=== PATIENT | female | born 1980 | race Two or more races ===

== ENCOUNTER 2023-12-14 13:41 | Outpatient (REF) | payer OTHER, SELFPAY ==
[2023-12-14 13:57] LABS: MANUAL DIFF FLAG NO
[2023-12-14 14:17] LABS: Basophils Absolute Auto 0.1 X10*3/uL (0.0-0.2); Basophils Percent Auto 0.9 % (0-2); Eosinophils Absolute Auto 0.1 X10*3/uL (0.0-0.4); Eosinophils Percent Auto 2.5 % (0-4); Hematocrit 44.6 % (37.0-47.0); Hemoglobin 14.2 g/dl (12.0-16.0); Imm Gran Abs Auto 0.02 X10*3/uL (0.00-0.03); Imm Gran Pct Auto 0.4 % (0.0-0.4); Lymphocytes Absolute Auto 1.9 X10*3/uL (1.2-4.9); Lymphocytes Percent Auto 34.4 % (20-40); Mean Corpuscular HGB Conc 31.8 g/dl (31.0-35.0); Mean Corpuscular Hemoglobin 27.2 pg (27.0-33.0); Mean Corpuscular Volume 85.3 fL (80.0-98.0); Mean Platelet Volume 11.1 fL (9.4-12.3); Monocytes Absolute Auto 0.4 X10*3/uL (0.1-1.2); Monocytes Percent Auto 6.9 % (2-11); Neutrophils Percent Auto 54.9 % (45-73); Platelet Count 253 X10*3/uL (160-400); Red Blood Count 5.23 X10*6/uL (4.20-5.50); Red Cell Distribution Width 13.2 % (11.0-16.0); White Blood Count 5.5 X10*3/uL (4.8-10.8)
[2023-12-14 14:25] LABS: Appearance Urine Cloudy; Color Urine Yellow; Glucose Urine UA Negative (Negative); Leukocyte Esterase Urine Large (3+) (Negative); Nitrite Urine Negative (Negative); UMIC TRIGGER UACC YES; Urine Blood Negative (Negative); Urine Ketones Negative (Negative); Urine Protein Trace mg/dL (Neg-Trace)
[2023-12-14 14:45] LABS: Bacteria Urine 4+ (None Seen); Hyaline Casts Urine 0-2 /LPF (0-2); RBC Urine 0-2 /HPF (0-2); UACC Culture Trigger YES; WBC Urine 21-50 /HPF (0-5)
[2023-12-14 14:53] LABS: Alanine Aminotransferase 16 U/L (0-31); Albumin Level 4.1 g/dL (3.5-5.0); Alkaline Phosphatase 67 U/L (39-117); Anion Gap 11 (12-20); Aspartate Amino Transferase 16 U/L (5-31); Bilirubin Total 0.4 mg/dL (0.0-1.0); Blood Urea Nitrogen 10 mg/dL (9-16); Calcium 8.8 mg/dL (8.4-10.2); Carbon Dioxide 28 mmol/L (22-29); Chloride 106 mmol/L (96-108); Cholesterol 155 mg/dL (<200); Estimated Glomerular Filt Rate > 60; Glucose Fasting 94 mg/dL (60-99); HDL Cholesterol 48 mg/dL (>40); LDL Cholesterol Calculated 96 mg/dL (<100); Sodium 141 mmol/L (135-145); Total Protein 7.5 g/dL (6.5-8.0); Triglycerides 57 mg/dL (<150)
[2023-12-14 15:08] LABS: TSH reflex Free T4 1.16 uIU/mL (0.32-4.0)
== END 2023-12-14 13:42 | disposition home or self-care (01) ==
LOC: HO.LAB 13:41
PROVIDERS: PCP Internal Medicine; Visit Provider Internal Medicine
DX: E78.00 Pure hypercholesterolemia, unspecified (principal); E55.9 Vitamin D deficiency, unspecified; I10 Essential (primary) hypertension
CPT/HCPCS: 36415; 80053; 80061; 81001; 82306; 84443; 85025; 87086

== ENCOUNTER 2023-12-18 15:31 | Outpatient (AMB) | payer OTHER, SELFPAY ==
--- NOTE | 2023-12-18 15:36 | MHC.PC.OV ---
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 Required: No Electronics Processor: Not Required per policy Accompanied by: Self / Same As Patient Allergies No Known Drug Allergies Allergy (Unknown, Verified 08/05/24 12:55) Unknown Medication List - Last Reconciled 12/18/23 by Michoacano Lynch MD levocetirizine 5 mg PO DAILY Tobacco use date assessed: 12/18/23 Dental Screening Dental Screen Date: 12/18/23 Did you have a dental visit in the last 12 months?: Yes Did you have a dental problem in the last 6 months where you did not have access to dental care?: No Was dental information given to patient?: Patient has dentist HPI Annual Exam HPI Details Patient comes in today for her annual physical examination States that she continues to experience increased anxiety and depression (started mostly after her father about a year and a half ago now) - still does not wish to take any Rx but would now like to seek counseling/therapy for her mood disorder She also has several skin tags on her that she wants to have removed if possible States that she feels okay otherwise She denies any headaches or dizziness Denies any chest pains, no increased SOB No nausea/vomiting, no abdominal pain No change in bowel habits noted She denies any acute urinary symptoms She had her pap smear and gynecology exam done at [facility] last month (October 2023), and had her IUD replaced then She had her annual mammogram done a few days ago on 12/14/2023 and is scheduled for repeat imaging this Sunday supposedly to look further into some unexpected findings on her initial scans [facility] Medical History (Updated 09/08/24 @ 18:21 by Michoacano Lynch MD) Anxiety Depression Vitamin D deficiency Obesity (BMI 30-39.9) Overweight (BMI 25.0-29.9) Multiple environmental allergies Surgical History Status post left oophorectomy (~12/2017) Family History Father Colon cancer Mother No problems noted. Social History Housing: House Alcohol intake: current Alcohol intake frequency: holidays/special occasions only Patient Tobacco Use Status: Never used Tobacco e-Cigarette/Vaping Use: Never Used Second Hand Smoke Exposure: Yes service: No Current occupational status: employed Cognitive needs: No Hearing needs: No Vision needs: No Questionnaire PHQ-9 Over the last 2 weeks, how often have you been bothered by any of the following problems? 1. Little interest or pleasure in doing things: nearly every day 2. Feeling down, depressed, or hopeless: nearly every day 3. Trouble falling or staying asleep, or sleeping too much: nearly every day 4. Feeling tired or having little energy: nearly every day 5. Poor appetite or overeating: nearly every day 6. Feeling bad about yourself - or that you are a failure or have let yourself or your family down: nearly every day 7. Trouble concentrating on things, such as reading the newspaper or watching television: nearly every day 8. Moving or speaking so slowly that other people could have noticed. Or the opposite - being so fidgety or restless that you have been moving around a lot more than usual: nearly every day 9. Thoughts that you would be better off or of hurting yourself in some way: nearly every day Total score: 27 Depression Screening Interpretation: Positive (since father from cancer in 05/2022) Depression Screening Follow-up: Community Mental Health Worker F/U, Follow-up Visit Requested and Declines treatment Depression Screening Done: Yes 70342 - PHQ-9 Billing: Yes Source: Developed by Drs. Bear Armenta, Pema Power, Napoleon Mckee and colleagues, with an educational calderon from [employer]. Thrive Questionnaire Date Thrive assessed: 12/18/23 I am a: Patient What is your living situation today?: I have a steady place to live Within the past 12 months, did the food you bought not last and you didn't have the money to get more?: Never true Within the past 12 months, did you worry whether your food would run out before you got money to buy more?: Never true Do you have trouble paying for medicines?: No Do you have trouble getting transportation to medical appointments?: No Do you have trouble paying your heating and electricity bill?: No Do you have trouble taking care of your child, family member or friend?: No Do you have trouble with day-to-day activities such as bathing, preparing meals, shopping, managing finances, etc.?: No Are you currently unemployed and looking for a job?: No Are you interested in more education?: No Please select the resources that you would like help with: None Currently or been in a relationship where the following occur: no concerns reported THRIVE Score: 0 AUDIT C Alcohol Use Questionnaire (AUDIT-C) 1. How often do you have a drink containing alcohol?: Monthly or less 3. How often do you have six or more drinks on one occasion?: Less than monthly Total Score: 2 Score Reviewed/Action Taken: Yes SILVIANO-7 AMB Questionnaire SILVIANO-7 Date SILVIANO - 7 assessed: 12/18/23 Feeling nervous, anxious, or on edge: 0 = Not at all Not being able to stop or control worryin = Not at all Worrying too much about different things: 0 = Not at all Trouble relaxin = Not at all Being so restless that it is hard to sit still: 0 = Not at all Becoming easily annoyed or irritable: 0 = Not at all Feeling afraid as if something awful might happen: 0 = Not at all Total SILVIANO-7 score (0-4 normal; 5-9 mild; 10-14 moderate; 15-21 severe): 0 Source: Developed by Drs. Bear Armenta, Pema Power, Napoleon Mckee and colleagues, with an educational calderon from [employer]. Review of Systems Const Denies chills, Denies fatigue, Denies fever(s), Denies headache(s) and Denies malaise Eyes Denies blurry vision, Denies change in vision, Denies irritation and Denies itchy eyes ENT Denies dysphagia, Denies dizziness, Denies otalgia, Denies headache(s), Reports nasal congestion (at times), Reports nasal discharge (on and off), Denies neck pain, Denies odynophagia, Denies sinus pain and Denies sore throat Card Denies chest pain, Denies rapid heart rate, Denies irregular heart rhythm, Denies palpitations and Denies dyspnea Resp Denies chest congestion, Denies cough, Denies dyspnea and Denies wheezing GI Denies abdominal pain, Denies bloating, Denies constipation, Denies dysphagia, Denies heartburn, Denies diarrhea, Denies nausea, Denies odynophagia and Denies vomiting Denies hematuria, Denies urinary frequency, Denies dysuria, Denies urinary incontinence and Denies urinary urgency Musc Denies back pain, Denies arthralgias, Denies joint swelling, Denies muscle weakness and Denies neck pain Skin/Breast Details: (+) scattered multiple skin tags, especially around her neck area Denies breast pain, Denies breast mass, Denies change in pigmentation, Denies rash and Denies unusual bruising Neuro Denies dizziness, Denies headache(s) and Denies paresthesias Psych Reports anxiety and Reports depression Endo Denies fatigue and Denies palpitations Joel/Lymph Denies easy bruising Aller/Immun Denies itchy eyes, Reports seasonal rhinorrhea and Denies wheezing Physical exam (Primary Care) Vital Signs: Last Vital Signs Pulse 75 12/18/23 15:37 BP 130/72 12/18/23 15:37 Pulse Ox 100 12/18/23 15:37 Oxygen Delivery Method Room Air 12/18/23 15:37 BMI result Body Mass Index 32.1 Tobacco/Smoking Status: Tobacco use Status Tobacco use date assessed 12/18/23 12/18/23 15:38 Patient Tobacco Use Status Never used Tobacco 12/18/23 15:36 e-Cigarette/Vaping Use Never Used 12/18/23 15:36 PHQ-9: PHQ-9 Score PHQ-9: Total score 12/20/23 22:21 Depression Screening Interpretation: Positive (since father from cancer in 05/2022) Depression Screening Follow-up: Community Mental Health Worker F/U, Follow-up Visit Requested and Declines treatment Thrive Assessment: Date of Thrive Assessment Date Thrive assessed 12/18/23 12/18/23 15:38 Currently or been in a relationship where the following occur: no concerns reported Const General: no acute distress, alert and awake Orientation/consciousness: patient oriented x3 HENMT Head: Yes normocephalic and Yes atraumatic Ears: external ears normal, TM's normal bilaterally and EAC's normal General nose exam: No nasal discharge present Face and sinus: Yes normal facial exam and Yes sinuses nontender Teeth and gingiva: dentition normal Throat: Yes posterior oropharynx normal and Yes tonsils normal (no TP congestion) Eyes Eyelids: Yes eyelids normal Conjunctivae: conjunctivae normal Pupils: Equal, round and reactive pupils present EOM: EOMs intact bilaterally Neck Neck: Yes no lymphadenopathy and Yes supple Thyroid: Thyroid normal Resp Auscultation: clear to auscultation bilaterally, no rales and no wheezes Cardio Rate: regular rate Rhythm: regular rhythm Heart sounds: no murmurs GI Palpation (GI): Soft to palpation, nontender and No hepatosplenomegaly present Auscultation: normal bowel sounds General: Yes no CVA tenderness Back/Spine/Pelvis Back: no CVA tenderness Thoracic/Lumbar Spine: thoracic and lumbar spine normal to inspection Skin Other: (+) multiple small, scattered raised skin tags, especially around her neck area Rashes: no rashes Neuro General: patient oriented x3, moves all extremities, no focal motor deficits and CN's II-XI intact bilaterally Cranial nerves: Yes Equal, round and reactive pupils present Cognition (Neuro): normal cognition Gait exam (Neuro): Normal gait present Extrem General: Yes no clubbing, cyanosis or edema Results Reviewed Results Reviewed: Laboratory Tests 12/14/23 12/14/23 12/14/23 13:56 13:56 14:00 WBC 5.5 Hgb 14.2 Hct 44.6 Plt Count 253 Sodium 141 Potassium 4.0 Creatinine 0.66 Estimated GFR > 60 Fasting Glucose 94 AST 16 ALT 16 Triglycerides 57 Cholesterol 155 LDL Cholesterol, Calc 96 HDL Cholesterol 48 25-OH Vitamin D Total 11.0 L TSH 1.16 Ur Specific [place] 1.020 Urine Protein Trace Urine Glucose (UA) Negative Urine Blood Negative Urine Nitrite Negative Ur Leukocyte Esterase 12/14/23 14:00 WBC Hgb Hct Plt Count Sodium Potassium Creatinine Estimated GFR Fasting Glucose AST ALT Triglycerides Cholesterol LDL Cholesterol, Calc HDL Cholesterol 25-OH Vitamin D Total TSH Ur Specific [place] Urine Protein Urine Glucose (UA) Urine Blood Urine Nitrite Ur Leukocyte Esterase Large (3+) H Coding Level of Care Code Est Pt Prev Care 40-64y(69102) Diagnoses Annual physical exam Z00.00 Multiple environmental allergies Z91.09 Vitamin D deficiency E55.9 Multiple acquired skin tags L91.8 Anxiety F41.9 Depression, unspecified depression type F32.A Depression Type: unspecified Obesity (BMI 30-39.9) E66.9
[2023-12-18 15:37] VITALS: BP 130/72; PULSE 75; O2SAT 100; BMI 32.1
== END 2023-12-18 16:53 | disposition home or self-care (01) ==
PROVIDERS: PCP Internal Medicine; Visit Provider Internal Medicine
DX: Z00.00 Encounter for general adult medical examination without abnormal findings (principal); Z91.09 Other allergy status, other than to drugs and biological substances; F32.A Depression, unspecified; E55.9 Vitamin D deficiency, unspecified; L91.8 Other hypertrophic disorders of the skin; F41.9 Anxiety disorder, unspecified; E66.9 Obesity, unspecified
CPT/HCPCS: 99499

== ENCOUNTER 2024-08-05 12:01 | Outpatient (AMB) | payer OTHER, SELFPAY ==
--- NOTE | 2024-08-05 12:48 | AM.OFFWIN_ITS ---
Intake Vital Signs 08/05/24 12:49 Height 5 ft 3 in Weight 177 lb BMI 31.4 BP 120/80 Blood Pressure Location Lt brachial Position Sitting Pulse 60 Pulse Source Pulse Oximeter Pulse Oximetry (%) 98 Oxygen Delivery Method Room Air Intake Visit Reasons: EP-rt shoulder pain Intake Note: Patient here for injury that happened about 2 months ago, she states her right shoulder is still present. Patient Tobacco Use Status: Never used Tobacco Allergies No Known Drug Allergies Allergy (Unknown, Verified 08/05/24 12:55) Unknown Do you need a note to return to daycare/school/sports/work: No HPI HPI Comments History of Present Illness Details 43 y/o female patient who presents to [facility] walk in clinic with c/o right shoulder pain x 2 weeks. Pt reports had a fall 2 months ago and landed on her shoulder. She was seen and evaluated at a local in [place] and Xrays were negative for fracture. She continues to have pain with any ROM. Denies numbness or tingling. [facility] Medical History Multiple environmental allergies Overweight (BMI 25.0-29.9) Surgical History Status post left oophorectomy (~12/2017) Family History Father Colon cancer Mother No problems noted. Social History Housing: House Alcohol intake: current Alcohol intake frequency: holidays/special occasions only Patient Tobacco Use Status: Never used Tobacco e-Cigarette/Vaping Use: Never Used Second Hand Smoke Exposure: Yes service: No Current occupational status: employed Cognitive needs: No Hearing needs: No Vision needs: No Physical Exam Vital Signs: Last Vital Signs Pulse 60 08/05/24 12:49 BP 120/80 08/05/24 12:49 Pulse Ox 98 08/05/24 12:49 Oxygen Delivery Method Room Air 08/05/24 12:49 BMI result Body Mass Index 31.4 Const General: cooperative and no acute distress; No comfortable Nutritional Appearance: overweight Orientation/consciousness: patient oriented x3 Neuro General: patient oriented x3, gait normal and moves all extremities Extrem Right upper extremity: shoulder/upper arm (Limited ROM due to pain) Details: normal to inspection and abnormal ROM; no tenderness, no swelling, no lacerations, no ecchymosis and no crepitus Left upper extremity: normal to inspection and full ROM Psych Speech and movement: Normal speech and movement present Assessment & Plan Assessment & Plan (1) Right shoulder strain: Code(s): S46.911A - Strain of unspecified muscle, fascia and tendon at shoulder and upper arm level, right arm, initial encounter Qualifiers: Encounter type: initial encounter Qualified Code(s): S46.911A - Strain of unspecified muscle, fascia and tendon at shoulder and upper arm level, right arm, initial encounter Plan: Ordered referrals to PT and Pain management. NSAIDs for pain relief IceHot Orders: Orders PT Evaluation and Treatment Today S46.911A - Strain of unspecified muscle, fascia and tendon at shoulder and upper arm level, right arm, initial encounter Referrals Pain Management Referral S46.911A - Strain of unspecified muscle, fascia and tendon at shoulder and upper arm level, right arm, initial encounter Medications: New cyclobenzaprine 10 mg PO BEDTIME 14 tabs 0RF S46.911A - Strain of unspecified muscle, fascia and tendon at shoulder and upper arm level, right arm, initial encounter acetaminophen 1,000 mg (2 x 500 mg) PO Q6H PRN 60 caps 0RF pain S46.911A - Strain of unspecified muscle, fascia and tendon at shoulder and upper arm level, right arm, initial encounter ibuprofen 800 mg PO Q8H 30 tabs 0RF S46.911A - Strain of unspecified muscle, fascia and tendon at shoulder and upper arm level, right arm, initial encounter Coding Level of Care Code Est Pt Level 3 (13850) Diagnoses Strain of right shoulder, initial encounter S46.911A Encounter type: initial encounter Time Spent (min) 15
[2024-08-05 12:49] VITALS: BP 120/80; PULSE 60; O2SAT 98; BMI 31.4
== END 2024-08-05 13:51 | disposition home or self-care (01) ==
PROVIDERS: PCP Internal Medicine; Visit Provider Nurse Practitioner Family
DX: S46.911A Strain of unspecified muscle, fascia and tendon at shoulder and upper arm level, right arm, initial encounter (principal)

== ENCOUNTER → 2024-08-05 12:01 | Outpatient (BNVA) | payer OTHER, SELFPAY | PROVIDERS: PCP Internal Medicine; Visit Provider Nurse Practitioner Family | DX: S46.911A Strain of unspecified muscle, fascia and tendon at shoulder and upper arm level, right arm, initial encounter (principal) | CPT/HCPCS: 99212 ==

== ENCOUNTER 2024-09-25 13:53 | Outpatient (AMB) | payer OTHER, SELFPAY ==
--- NOTE | 2024-09-25 13:55 | A.OFFVIS_ITS ---
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 Patient reports right shoulder strain injury due to mechanical fall on 06/08/24 and landed on her shoulder. Patient reports she was on vacation in [place] with her family and while at gas station, she was trying to cross over gas line and started to fall and grabbed top of her car's door and pulled her right arm. Patient is right hand dominant. She was seen and evaluated at a local Urgent Clinic in [place] and was told x-rays were negative for fracture. Patient was also seen at our [facility] on 08/05/24 with continued pain with ROM and was referred to PT and our office. She has been managing her symptoms with Tylenol, Ibuprofen and cyclobenzaprine and completed 6 formal PT sessions thus far with minimal improvement. She reports anterior and lateral shoulder pain with localized tenderness to periscapular, deltoid and scapular regions and new onset of radicular symptoms into her right hand and fingers with associated numbness and tingling. She denies any significant neck pain with full ROM but states neck muscle spasms on the right with lateral rotations and movements. Patient reports increased right shoulder pain with exercises, movements, sleeping on the right side, pushing, lifting, overhead reaches, ADLs, personal care, work and social interactions. Denies any previous Orthopedic evaluation, injections or surgery. Denies any fever or chills, cough, chest pain or tightness, shortness of breaths, locking sensations, bladder or bowel incontinence, or saddle anesthesia. Pain is most severe in the morning with movements, rated at 10/10 and less severe with rest or no movement. Reports right upper extremity weakness with pain. Shoulder Pain and Disability Index Score=83.1% (108/130, extremely severe shoulder pain and disability) Location: Right shoulder radiates into right hand and fingers Duration: Pain >4 months, s/p fall injury 06/09/24 Characteristics of symptom or complaint: Aching, stabbing, throbbing, numbness, tingling, tight, radiating, spasming Aggravating or associated factors: Any movement, lifting, pushing, reaching, ROM, cross-body reaches, ROM Relieving factors: Tylenol, NSAIDs, cyclobenzaprine, heat/ice therapy Treatment: PT and home exercise program, Urgent and Walk-in Clinics, xray [facility] Medical History Anxiety Depression Vitamin D deficiency Obesity (BMI 30-39.9) Overweight (BMI 25.0-29.9) Multiple environmental allergies Surgical History Status post left oophorectomy (~12/2017) Family History Father Colon cancer Mother No problems noted. Social History Housing: House Alcohol intake: current Alcohol intake frequency: holidays/special occasions only Patient Tobacco Use Status: Never used Tobacco e-Cigarette/Vaping Use: Never Used Second Hand Smoke Exposure: Yes service: No Current occupational status: employed Cognitive needs: No Hearing needs: No Vision needs: No Review of Systems Const All systems reviewed & are unremarkable except as noted in HPI and below Physical Exam General: Appears afebrile. Alert and oriented. Mood and affect appropriate. Follows and participates in conversation appropriately. Respiratory effort is unlabored. No cough. Able to transition from sit to stand unassisted. Ambulates with bilaterally normal heel strike and toe off. Extrem General: Yes capillary refill normal, Yes no clubbing, cyanosis or edema and Yes no calf tenderness Right upper extremity: shoulder/upper arm (Limited ROM due to pain. +Empty can test. +Neer test. +Frost) Details: normal to inspection and tenderness Location: of the A-C joint, of the scapula, over the biceps tendon, over the subacromial bursa and over the deltoid bursa; no swelling, no ecchymosis, no crepitus and no unusual warmth Results Reviewed Results Reviewed: No imaging results are available for review. Assessment & Plan Assessment & Plan (1) Impingement syndrome of right shoulder: Code(s): M75.41 - Impingement syndrome of right shoulder Category: Medical (2) Right rotator cuff tendinitis: Code(s): M75.81 - Other shoulder lesions, right shoulder Category: Medical (3) Right shoulder pain: Code(s): M25.511 - Pain in right shoulder Category: Medical Plan Right shoulder MRI to further evaluate pain and rule out rotator cuff tear vs tendinopathy. Patient will bring disc with shoulder xray imaging from Urgent care clinic for review. Discussed interventional treatments vs Orthopedic evaluation pending MRI review. Continue PT and home exercise program. Script provided for Meloxicam, Tylenol, diclofenac topical and tizanidine. Side effects and precautions were discussed with patient. All questions and concerns have been answered and patient agreed with the plan. Follow up for MRI results and sooner as needed. Orders: Orders MR shoulder RT wo con Today M25.511 - Pain in right shoulder, M75.41 - Impingement syndrome of right shoulder, M75.81 - Other shoulder lesions, right shoulder Medications: New meloxicam Take it with food and full glass of water. Avoid other NSAIDs. 15 mg PO DAILY 30 days 30 tabs 0RF pain M25.511 - Pain in right shoulder, M75.41 - Impingement syndrome of right shoulder, M75.81 - Other shoulder lesions, right shoulder tizanidine 4 mg PO BID 30 days PRN 60 tabs 0RF muscle spasticity M25.511 - Pain in right shoulder, M75.41 - Impingement syndrome of right shoulder, M75.81 - Other shoulder lesions, right shoulder diclofenac sodium 1% (Arthritis Pain (diclofenac)) 4 grams topical QID 100 grams 0RF pain M25.511 - Pain in right shoulder acetaminophen ER (Arthritis Pain Relief (acetaminophen) ER) 650 mg PO Q8H PRN 90 tabs 0RF pain M25.511 - Pain in right shoulder, M75.41 - Impingement syndrome of right shoulder, M75.81 - Other shoulder lesions, right shoulder Discontinued cyclobenzaprine Discontinued Reason: Patient Completed Course 10 mg PO BEDTIME 14 tabs 0RF S46.911A - Strain of unspecified muscle, fascia and tendon at shoulder and upper arm level, right arm, initial encounter acetaminophen Discontinued Reason: Patient Completed Course 1,000 mg (2 x 500 mg) PO Q6H PRN 60 caps 0RF pain S46.911A - Strain of unspecified muscle, fascia and tendon at shoulder and upper arm level, right arm, initial encounter Coding Level of Care Code New Pt Level 4 (18912) Complex EM visit Add On G2211 Diagnoses Impingement syndrome of right shoulder M75.41 Right rotator cuff tendinitis M75.81 Right shoulder pain M25.511
[2024-09-25 14:02] VITALS: BP 181/103; PULSE 71; O2SAT 98; BMI 31.4
== END 2024-09-25 14:31 | disposition home or self-care (01) ==
PROVIDERS: PCP Internal Medicine; Visit Provider Nurse Practitioner Family
DX: M75.41 Impingement syndrome of right shoulder (principal); M75.81 Other shoulder lesions, right shoulder; M25.511 Pain in right shoulder
CPT/HCPCS: 99204; G2211

== ENCOUNTER → 2024-09-25 13:53 | Outpatient (BNVA) | payer OTHER, SELFPAY | PROVIDERS: PCP Internal Medicine; Visit Provider Nurse Practitioner Family | DX: M75.41 Impingement syndrome of right shoulder (principal); M75.81 Other shoulder lesions, right shoulder; M25.511 Pain in right shoulder; S46.911A Strain of unspecified muscle, fascia and tendon at shoulder and upper arm level, right arm, initial encounter; W19.XXXA Unspecified fall, initial encounter; Y93.9 Activity, unspecified; Y92.9 Unspecified place or not applicable; Y99.9 Unspecified external cause status | CPT/HCPCS: 99202 ==

== ENCOUNTER 2024-10-03 13:04 | Outpatient (RCR) | payer OTHER, SELFPAY ==
--- NOTE | 2024-09-02 12:46 | MHC.PT.EP ---
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 SHE HAD GONE TO AN URGENT CARE AND NOTES XRAY WAS (-). OBJECTIVE FINDINGS: DECR AROM Rt SH -> DUE TO PAIN LIMITING (IMPROVED PROM Rt SH), (+) STRENGTH DEFICITS Rt SH COMPLEX; (+) NEER'S/ MILD APPREHENSION/ (+) TOS Rt UE, DECR POSTURAL AWARENESS, AND FLUCTUATING PAIN IN HER PROX Rt UE W INTERMITTENT TINGLING Rt HAND. FUNCTIONALLY, THE Pt HAS DECR SVITLANA AND PAIN LIMITING ADLs > SH HEIGHT; REACHING; DRIVING, INCR Rt UE USAGE W ADLs, AND CARRYING. SHE IS MOTIVATED FOR PT AND AGREES W POC, ADDRESSING THE ABOVE FINDINGS. Frequency and Duration: The patient will be seen 2 x WK x 5 WKS Short Term Goals: *DECR Rt SH PAIN TO 2-3/10 *Pt INDEP SELF CORRECT POSTURE *IMPROVE Rt GH STAB INCR AROM Rt SH *INITIATE HEP Admitting Officer Goals: *Pt INDEP W HEP AND SELF SX MGMT TECHN *Rt SH COMPLEX STRENGTH INCR BY 1 GRADE *Pt RESUME REG ADLs/ FITNESS W/O SXS LIMITING HER, EVIDENT RE IMPROVED SPADI , AT EVAL 115/130 Treatment Plan: Modalities to reduce pain, spasms and effusion. Manual therapy to restore motion and function. Therapeutic exercise to improve strength and flexibility. Neuromuscular re-education for posture and balance. Therapeutic activities to return to functional activities of daily living. Electronically signed by: MALGORZATA CHACON,PT Please sign and return to therapist. Thank you for your referral.
--- NOTE | 2024-11-17 07:49 | MHC.PT.DC ---
[facility] [place] Office [place] Office [place] Office [address] [phone] F: [phone] F: [phone] F: [phone] F: [phone] Physical Therapy Discharge Report Diagnosis: RIGHT SHOULDER STRAIN Date of Surgery: Date of Evaluation: 09/02/24 Date of Discharge: 11/17/24 Treatments to Date: 7 Cancellations to Date: 2 No Shows to Date: 1 Discharge Status: Improved Function Independent with HEP Patient Elected to Stop Discharge Summary: ERICK DAWSONPAPO SOME PROGRESS IN PT-> ADDRESSING POSTURE, SCAP/ POST RC ACTIV, PROGR ROM, AND STABILIZATION EXER. HOWEVER, SHE CONT TO HAVE DECR SVITLANA WITH OVERHEAD REACHING. SHE IS SCHED FOR AN MRI AND ORTHO CONSULT. THE Pt D/C'D HERSELF FROM PT AT THIS TIME. Electronically signed by: MALGORZATA CHACON,PT Please sign and return to therapist. Thank you for your referral.
== END 2024-11-17 07:50 | disposition home or self-care (01) ==
LOC: HO.PT 13:04
PROVIDERS: PCP Internal Medicine; Visit Provider Nurse Practitioner Family
DX: S46.911D Strain of unspecified muscle, fascia and tendon at shoulder and upper arm level, right arm, subsequent encounter (principal)
CPT/HCPCS: 97014; 97110; 97140; 97162

== ENCOUNTER 2024-10-20 13:13 | Outpatient (AMB) | payer OTHER, SELFPAY ==
[2024-10-20 13:15] VITALS: BP 122/74; PULSE 71; O2SAT 99; BMI 31.6
--- NOTE | 2024-10-20 13:15 | A.OFFPC_ITS ---
Vital Signs 10/20/24 13:15 Height 5 ft 3 in Weight 178 lb 6 oz BMI 31.6 BP 122/74 Blood Pressure Location Lt brachial Position Sitting Pulse 71 Pulse Source Pulse Oximeter Pulse Oximetry (%) 99 Oxygen Delivery Method Room Air Intake Visit Reasons: shoulder pain follow up Liquor Merchant Required: No Accompanied by: Self / Same As Patient Allergies No Known Drug Allergies Allergy (Unknown, Verified 10/20/24 13:59) Unknown Medication List - Last Reconciled 10/20/24 by CHA Erickson acetaminophen ER (Arthritis Pain Relief (acetaminophen) ER) 650 mg PO Q8H PRN acetaminophen ER (Arthritis Pain Relief (acetaminophen) ER) 650 mg PO Q8H PRN diclofenac sodium 1% (Arthritis Pain (diclofenac)) 4 grams topical QID ibuprofen 800 mg PO Q8H levocetirizine 5 mg PO DAILY meloxicam 15 mg PO DAILY 30 days meloxicam 15 mg PO DAILY 30 days tizanidine 4 mg PO BID PRN 30 days tizanidine 4 mg PO BID PRN 30 days Tobacco use date assessed: 10/20/24 Dental Screening Dental Screen Date: 10/20/24 Did you have a dental visit in the last 12 months?: Yes Did you have a dental problem in the last 6 months where you did not have access to dental care?: No Was dental information given to patient?: Patient has dentist HPI shoulder pain follow up HPI Details Patient is a 43-year-old female with a significant history of anxiety, depression, ovarian cyst Patient is presenting for follow-up of right shoulder pain She was seen in a walk-in clinic on 08/05/24, who referred the patient to PT and pain management. The patient was seen by pain management on 09/25/24-there the patient was ordered an MRI of the right shoulder. The patient verbalized full ROM in the right arm-but is only willing to do partial due to the pain. The patient could range from moderate to severe- depending on the movement. reports pain with movements and radiculopathy symptoms of tingling and heaviness in the fingers tips intermittently with activity Resolves with resting, the patient reports that she does not think her pain is well controlled. She is alternating her tizanidine 4mg with her meloxicam and she has been reluctant to take the tylenol 650 mg due to fear of liver issues. She also reports the diclofenac sodium 1% direction said not to be used on the shoulders-so she has not been using this. The patient has a upcoming appt with orthopedic on 11/07/24 Right shoulder MRI: On 10/07/24- 1)Supraspinatus/infraspinatus partial-th ickness articular sided tear with modest retraction. 2)Humeral head lateral osseous contusion versus reactive undermining the cuff footprint. [facility] Medical History Anxiety Depression Vitamin D deficiency Obesity (BMI 30-39.9) Overweight (BMI 25.0-29.9) Multiple environmental allergies Surgical History Status post left oophorectomy (~12/2017) Family History Father Colon cancer Mother No problems noted. Social History Housing: House Alcohol intake: current Alcohol intake frequency: holidays/special occasions only Patient Tobacco Use Status: Never used Tobacco e-Cigarette/Vaping Use: Never Used Second Hand Smoke Exposure: Yes service: No Current occupational status: employed Cognitive needs: No Hearing needs: No Vision needs: No Questionnaire PHQ-9 Over the last 2 weeks, how often have you been bothered by any of the following problems? 1. Little interest or pleasure in doing things: nearly every day 2. Feeling down, depressed, or hopeless: nearly every day 3. Trouble falling or staying asleep, or sleeping too much: nearly every day 4. Feeling tired or having little energy: nearly every day 5. Poor appetite or overeating: nearly every day 6. Feeling bad about yourself - or that you are a failure or have let yourself or your family down: nearly every day 7. Trouble concentrating on things, such as reading the newspaper or watching television: nearly every day 8. Moving or speaking so slowly that other people could have noticed. Or the opposite - being so fidgety or restless that you have been moving around a lot more than usual: nearly every day 9. Thoughts that you would be better off or of hurting yourself in some way: nearly every day Total score: 27 Depression Screening Interpretation: Positive (since father from cancer in 05/2022) Depression Screening Follow-up: Community Mental Health Worker F/U, Follow-up Visit Requested and Declines treatment Depression Screening Done: Yes 71201 - PHQ-9 Billing: Yes Source: Developed by Drs. Bear Armenta, Pema Power, Napoleon Mckee and colleagues, with an educational calderon from [employer]. Thrive Questionnaire Date Thrive assessed: 10/20/24 I am a: Patient What is your living situation today?: I have a steady place to live Within the past 12 months, did the food you bought not last and you didn't have the money to get more?: Never true Within the past 12 months, did you worry whether your food would run out before you got money to buy more?: Never true Do you have trouble paying for medicines?: No Do you have trouble getting transportation to medical appointments?: No Do you have trouble paying your heating and electricity bill?: No Do you have trouble taking care of your child, family member or friend?: No Do you have trouble with day-to-day activities such as bathing, preparing meals, shopping, managing finances, etc.?: No Are you currently unemployed and looking for a job?: No Are you interested in more education?: No Please select the resources that you would like help with: None Currently or been in a relationship where the following occur: No concerns reported THRIVE Score: 0 AUDIT C Alcohol Use Questionnaire (AUDIT-C) 1. How often do you have a drink containing alcohol?: Monthly or less 3. How often do you have six or more drinks on one occasion?: Less than monthly Total Score: 2 Score Reviewed/Action Taken: Yes SILVIANO-7 AMB Questionnaire SILVIANO-7 Date SILVIANO - 7 assessed: 10/20/24 Feeling nervous, anxious, or on edge: 0 = Not at all Not being able to stop or control worryin = Not at all Worrying too much about different things: 0 = Not at all Trouble relaxin = Not at all Being so restless that it is hard to sit still: 0 = Not at all Becoming easily annoyed or irritable: 0 = Not at all Feeling afraid as if something awful might happen: 0 = Not at all Total SILVIANO-7 score (0-4 normal; 5-9 mild; 10-14 moderate; 15-21 severe): 0 Source: Developed by Drs. Bear Armenta, Pema Power, Napoleon Mckee and colleagues, with an educational calderon from [employer]. Review of Systems Const Details: Const Denies chills, Denies fatigue, Denies fever(s), Denies headache(s) and Denies weakness ENT Denies dizziness and Denies headache(s) Card Denies chest pain, Denies lightheadedness, Denies dyspnea and Denies other (Palpitations) Resp Denies cough, Denies dyspnea, Denies wheezing and Denies other ( shortness of breath) GI Denies abdominal pain, Denies melena, Denies hematochezia, Denies change in bowel habits, Denies dyspepsia and Denies nausea Denies hematuria and Denies dysuria Musc Pain with movement of right arm, tingling and heaviness in fingertips with activity intermittently-resolves with resting. No swelling or discoloration Skin/Breast Denies rash, Denies unusual bruising and Denies wounds Neuro Denies abnormal gait, Denies dizziness, Denies headache(s), Denies memory loss, Denies numbness, Denies Sensory deficit (Neuro), Denies tingling and Denies weakness Psych Reports depression, reports anxiety, Denies memory loss Endo Denies cold intolerance, Denies fatigue, Denies heat intolerance, Denies polydipsia and Denies polyuria Aller/Immun Denies wheezing Physical exam (Primary Care) Vital Signs: Last Vital Signs Pulse 71 10/20/24 13:15 BP 122/74 10/20/24 13:15 Pulse Ox 99 10/20/24 13:15 Oxygen Delivery Method Room Air 10/20/24 13:15 BMI result Body Mass Index 31.6 Tobacco/Smoking Status: Tobacco use Status Tobacco use date assessed 10/20/24 10/20/24 13:19 Patient Tobacco Use Status Never used Tobacco 10/20/24 13:19 e-Cigarette/Vaping Use Never Used 10/20/24 13:19 PHQ-9: PHQ-9 Score PHQ-9: Total score 27 10/20/24 13:55 Depression Screening Interpretation: Positive (since father from cancer in 05/2022) Depression Screening Follow-up: Community Mental Health Worker F/U, Follow-up Visit Requested and Declines treatment Thrive Assessment: Date of Thrive Assessment Date Thrive assessed 10/20/24 10/20/24 13:19 Currently or been in a relationship where the following occur: No concerns reported Const Other: General: no acute distress and well developed Nutritional Appearance: well nourished Orientation/consciousness: patient oriented x3 [facility] Head: Yes normocephalic and Yes atraumatic Eyes General: appearance normal, both eyes and all related structures Pupils: Equal, round and reactive pupils present EOM: EOMs intact bilaterally Resp Effort & Inspection: normal respiratory effort Auscultation: clear to auscultation bilaterally Cardio Rate: regular rate Rhythm: regular rhythm Heart sounds: S1 normal heart sound present, S2 normal heart sound present, no gallops, no murmurs and no rubs GI Palpation (GI): No Abdominal aortic bruit present, Soft to palpation, nontender, No hepatosplenomegaly present and No Rebound tenderness present Auscultation: normal bowel sounds General: Yes no CVA tenderness Back/Spine/Pelvis Back: no CVA tenderness Right shoulder pain with palpation of the scapula, biceps tendon and AC joint. Pain range of motion, limited range of motion due to pain. No edema no erythema Positive beer can test. Extrem General: Yes normal to inspection, No edema and No calf tenderness Skin General: warm and dry. Normal skin color. Normal skin turgor Lesions: no lesions Rashes: no rashes Trauma: no lacerations or abrasions Wounds: no wounds Nails: normal Neuro General: patient oriented x3, gait normal and no focal neuro deficit Cranial nerves: Yes Equal, round and reactive pupils present Cognition (Neuro): normal cognition Gait exam (Neuro): Normal gait present Sensory Exam: No Sensory deficit (Neuro) Psych Appearance: grossly normal Affect: normal affect Attitude: cooperative Thought process: Normal thought process present Coding Level of Care Code Est Pt Level 3 (75755) Diagnoses Incomplete tear of right rotator cuff, unspecified whether traumatic M75.111 Rotator cuff tear trauma status: unspecified whether traumatic Laterality: right Depression, unspecified depression type F32.A Depression Type: unspecified Additional Codes PHQ-9 - 52912 - PHQ-9 Billing: Yes ([id number]) Assessment & Plan Assessment & Plan (1) Partial thickness rotator cuff tear: Code(s): M75.110 - Incomplete rotator cuff tear or rupture of unspecified shoulder, not specified as traumatic Category: Medical Qualifiers: Rotator cuff tear trauma status: unspecified whether traumatic Laterality: right Qualified Code(s): M75.111 - Incomplete rotator cuff tear or rupture of right shoulder, not specified as traumatic Plan: Continue Tizanidine 4mg, meloxicam, Tylenol 650mg prn.-medications refilled. The patient reports that her pain is not well-controlled. Patient reports that she has been alternating the tizanidine and meloxicam-she was hesitant on taking both medication the same time. Patient was informed that both medication are safe to be taken together. However, the tizanidine could make her tired and it might be safer to take at night. The patient also reports that she has not been taking the tylenol due to concerns of liver issues. The patient was educated that she could take the Tylenol 650mg every 4-6 hours, but she shouldn't take more than 4grams within 24 hours. The patient was informed that her MRI showed right rotator cuff partial tear-she has an appt with orthopedics on 11/07/24-the patient was encouraged to keep that appt. (2) Depression: Code(s): F32.A - Depression, unspecified Category: Medical Qualifiers: Depression Type: unspecified Qualified Code(s): F32.A - Depression, unspecified Plan: Reports that she is has been seeing an therapist weekly and she thinks it is a good fit for her She denies si/hi maintain therapist appt as scheduled The patient has CPE in 12/22/24-patient was encouraged to follow up sooner for any conerns. Plan To return as scheduled in a couple of months for her annual physical examination Medications: Refilled meloxicam Take it with food and full glass of water. Avoid other NSAIDs. 15 mg PO DAILY 30 days 30 tabs 0RF pain M25.511 - Pain in right shoulder, M75.41 - Impingement syndrome of right shoulder, M75.81 - Other shoulder lesions, right shoulder tizanidine 4 mg PO BID 30 days PRN 60 tabs 0RF muscle spasticity M25.511 - Pain in right shoulder, M75.41 - Impingement syndrome of right shoulder, M75.81 - Other shoulder lesions, right shoulder acetaminophen ER (Arthritis Pain Relief (acetaminophen) ER) 650 mg PO Q8H PRN 90 tabs 0RF pain M25.511 - Pain in right shoulder, M75.41 - Impingement syndrome of right shoulder, M75.81 - Other shoulder lesions, right shoulder
== END 2024-10-20 13:58 | disposition home or self-care (01) ==
PROVIDERS: PCP Internal Medicine; Visit Provider Internal Medicine
DX: M75.111 Incomplete rotator cuff tear or rupture of right shoulder, not specified as traumatic (principal); F32.A Depression, unspecified

== ENCOUNTER 2024-11-07 07:56 | Outpatient (REF) | payer OTHER, SELFPAY ==
--- NOTE | ~2024-11-07 | XR_ITS ---
EXAMINATION: XR SHOULDER, RIGHT CLINICAL INFORMATION: M25.511 - Pain in right shoulder COMPARISON: Pain TECHNIQUE: Three views of the right shoulder. FINDINGS: The bones and soft tissues are normal. No fracture. Glenohumeral and acromioclavicular alignment is anatomic with normal joint space. No abnormal soft tissue calcifications. XR/XR shoulder RT min 2V IMPRESSION: Normal right shoulder. Electronically signed by: Bobby Alaniz MD 11/10/2024 09:20 AM DAVID
== END 2024-11-07 07:57 | disposition home or self-care (01) ==
LOC: HO.HOSX 07:56
PROVIDERS: Visit Provider Physician Assistant
DX: M25.511 Pain in right shoulder (principal); M75.111 Incomplete rotator cuff tear or rupture of right shoulder, not specified as traumatic
CPT/HCPCS: 73030; 99202

== ENCOUNTER 2024-11-07 09:04 | Outpatient (AMB) | payer OTHER, SELFPAY ==
--- NOTE | 2024-11-07 09:20 | MHC.OFFVIS ---
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 MRI obtained. Patient reports that she tripped over a gas hose, attempting to catch her fall she reached out her arm and fell. She was seen at a walk in clinic where x-rays were taken and referred to PT. Her pain never improved. Her pain presents with moving her arm. Limited ROM. Her numbness has subsided however with sleeping on her right shoulder she has numbness in her hand. Her pain radiates down her arm. 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 She states 06/08/24 she tripped over a gas hose and fell with her right arm stretched out. She states at that time she felt her arm wa really heavy, she had a hard time lifting it. She was in [place] at the time so she went and bought a sling for support. When she returned home she went to Urgent care, no fx so she treatment it symptomatically. She continued to have pain and went to walk in clinic and was referred to PT. She states she attended PT for about 2 months. She states it was somewhat helpful, but she has some difficulty with raising the arm. Anything over head is difficult. 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 [facility] Medical History Anxiety Depression Vitamin D deficiency Obesity (BMI 30-39.9) Overweight (BMI 25.0-29.9) Multiple environmental allergies Surgical History Status post left oophorectomy (~12/2017) Family History Father Colon cancer Mother No problems noted. Social History (Updated 11/07/24 @ 09:23 by Meche Gastelum Андрей) Housing: House Alcohol intake: current Alcohol intake frequency: holidays/special occasions only Patient Tobacco Use Status: Never used Tobacco e-Cigarette/Vaping Use: Never Used Second Hand Smoke Exposure: Yes service: No Current occupational status: employed Current occupation: [employer] home [employer], right hand dominant Cognitive needs: No Hearing needs: No Vision needs: No Review of Systems Const All systems reviewed & are unremarkable except as noted in HPI and below Physical Exam Vital Signs: BMI result Body Mass Index 31.5 Const General: cooperative and no acute distress Orientation/consciousness: patient oriented x3 Resp Effort & Inspection: normal respiratory effort and able to speak in complete sentences Cardio Peripheral pulses: Peripheral pulses 2+ throughout Neuro General: patient oriented x3 Extrem Other: Right shoulder normal to inspection. FF to 100 with compensation of scapular region, ER to 90, IR to S1. She is able to perform rotator cuff strength testing however there is significant compensation on the right side when compared to contralateral side. NVI. Results Reviewed Results Reviewed: X-rays of the right shoulder obtained in the office today are negative for any acute or chronic abnormalities. MRI of the right shoulder obtained at [facility] shows partial-thickness articular sided rotator cuff tear Assessment & Plan Assessment & Plan (1) Partial thickness rotator cuff tear: Code(s): M75.110 - Incomplete rotator cuff tear or rupture of unspecified shoulder, not specified as traumatic Category: Medical Qualifiers: Rotator cuff tear trauma status: unspecified whether traumatic Laterality: right Qualified Code(s): M75.111 - Incomplete rotator cuff tear or rupture of right shoulder, not specified as traumatic Plan: We had a lengthy discussion about the extent of her injury and options available. She has completed 2 months of physical therapy but continues to have significant pain and limitations with activities. I explained to her the details of her rotator cuff repair surgery and the rehab following this procedure. She states that she is not able to continue with these limitations and pain however she is hesitant about surgery. I did encourage her to meet with Dr. Elena to discuss this further over the next several weeks and to be mindful of the limitation she has so she can use this to be more helpful with deciding if she would like to proceed with surgery or not patient is content with this plan. Orders: Orders XR shoulder RT min 2V Today M25.511 - Pain in right shoulder Coding Level of Care Code New Pt Level 4 (20240) Complex EM visit Add On G2211 Diagnoses Incomplete tear of right rotator cuff, unspecified whether traumatic M75.111 Rotator cuff tear trauma status: unspecified whether traumatic Laterality: right
[2024-11-07 09:29] VITALS: BMI 31.5
== END 2024-11-07 09:48 | disposition home or self-care (01) ==
PROVIDERS: PCP Internal Medicine; Visit Provider Physician Assistant
DX: M75.111 Incomplete rotator cuff tear or rupture of right shoulder, not specified as traumatic (principal)
CPT/HCPCS: 99204; G2211

== ENCOUNTER 2024-12-15 09:07 | Outpatient (REF) | payer OTHER, SELFPAY ==
[2024-12-15 09:35] LABS: MANUAL DIFF FLAG NO
[2024-12-15 10:00] LABS: Basophils Absolute Auto 0.1 X10*3/uL (0.0-0.2); Basophils Percent Auto 0.8 % (0-2); Eosinophils Absolute Auto 0.1 X10*3/uL (0.0-0.4); Eosinophils Percent Auto 1.5 % (0-4); Hematocrit 43.1 % (37.0-47.0); Hemoglobin 13.6 g/dl (12.0-16.0); Imm Gran Abs Auto 0.02 X10*3/uL (0.00-0.03); Imm Gran Pct Auto 0.3 % (0.0-0.4); Lymphocytes Absolute Auto 1.5 X10*3/uL (1.2-4.9); Lymphocytes Percent Auto 25.2 % (20-40); Mean Corpuscular HGB Conc 31.6 g/dl (31.0-35.0); Mean Corpuscular Hemoglobin 27.1 pg (27.0-33.0); Mean Platelet Volume 11.7 fL (9.4-12.3); Monocytes Absolute Auto 0.4 X10*3/uL (0.1-1.2); Monocytes Percent Auto 6.5 % (2-11); Neutrophils Percent Auto 65.7 % (45-73); Platelet Count 242 X10*3/uL (160-400); Red Blood Count 5.01 X10*6/uL (4.20-5.50); Red Cell Distribution Width 13.6 % (11.0-16.0); White Blood Count 6.1 X10*3/uL (4.8-10.8)
[2024-12-15 10:14] LABS: Appearance Urine Clear; Color Urine Yellow; Glucose Urine UA Negative (Negative); Leukocyte Esterase Urine Small (1+) (Negative); Nitrite Urine Negative (Negative); UMIC TRIGGER UACC YES; Urine Blood Negative (Negative); Urine Ketones Trace mg/dL (Negative); Urine Protein Trace mg/dL (Neg-Trace)
[2024-12-15 10:29] LABS: Bacteria Urine None Seen (None Seen); Hyaline Casts Urine 0-2 /LPF (0-2); RBC Urine 0-2 /HPF (0-2); UACC Culture Trigger YES; WBC Urine 0-5 /HPF (0-5)
[2024-12-15 11:40] LABS: TSH reflex Free T4 1.88 uIU/mL (0.32-4.0); Vitamin D 25-OH Total 12.2 ng/mL (>30)
[2024-12-15 11:54] LABS: Anion Gap 12 (12-20)
[2024-12-15 11:59] LABS: Alanine Aminotransferase 17 U/L (0-31); Albumin Level 4.2 g/dL (3.5-5.0); Alkaline Phosphatase 66 U/L (39-117); Aspartate Amino Transferase 21 U/L (5-31); Bilirubin Total 0.6 mg/dL (0.0-1.0); Blood Urea Nitrogen 11 mg/dL (9-16); Calcium 8.9 mg/dL (8.4-10.2); Carbon Dioxide 26 mmol/L (22-29); Chloride 105 mmol/L (96-108); Cholesterol 135 mg/dL (<200); Estimated Glomerular Filt Rate > 60; Glucose Fasting 100 mg/dL (60-99); HDL Cholesterol 49 mg/dL (>40); LDL Cholesterol Calculated 74 mg/dL (<100); Potassium 3.8 mmol/L (3.3-5.1); Sodium 139 mmol/L (135-145); Total Protein 7.9 g/dL (6.5-8.0); Triglycerides 61 mg/dL (<150)
== END 2024-12-15 09:08 | disposition home or self-care (01) ==
LOC: HO.LAB 09:07
PROVIDERS: PCP Internal Medicine; Visit Provider Internal Medicine
DX: Z00.00 Encounter for general adult medical examination without abnormal findings (principal); E78.00 Pure hypercholesterolemia, unspecified; D64.9 Anemia, unspecified; E55.9 Vitamin D deficiency, unspecified; R30.0 Dysuria
CPT/HCPCS: 36415; 80053; 80061; 81001; 81003; 82306; 84443; 85025; 87086

== ENCOUNTER 2024-12-19 08:51 | Outpatient (AMB) | payer OTHER, SELFPAY ==
--- NOTE | 2024-12-19 09:48 | MHC.OFFVIS ---
Intake Visit Reasons: OV - Right shoulder MRI review /Discuss surgery Intake Note: Tequila is a 43 year old right hand dominant female who presents today for a Right Shoulder MRI Review s/p fall on 06/08/24. ( MRI done at [facility]) She was last seen with Jony Snell who discussed surgical interventions as she has failed physical therapy. Allergies No Known Drug Allergies Allergy (Unknown, Verified 12/22/24 16:59) Unknown HPI HPI OV - Right shoulder MRI review /Discuss surgery: Details: Tequila is a 43 year old right hand dominant female who presents today for a Right Shoulder MRI Review s/p fall on 06/08/24. ( MRI done at [facility]) She was last seen with Jony Snell who discussed surgical interventions as she has failed physical therapy. She continues to have pain and weakness. She doesn't feel like she is able to participate in daily activities or sleep well. She takes NSAIDs which have not helped. [facility] Medical History (Updated 12/23/24 @ 02:59 by Michoacano Lynch MD) Anxiety Depression Vitamin D deficiency Obesity (BMI 30-39.9) Multiple environmental allergies Surgical History Status post left oophorectomy (~12/2017) Family History Father Colon cancer Mother No problems noted. 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 IMPRESSION: 1. Supraspinatus/infraspinatus partial-thickness articular sided tear with modest retraction. 2. Humeral head lateral osseous contusion versus reactive change undermining the cuff footprint. Assessment & Plan Assessment & Plan (1) Partial thickness rotator cuff tear: Code(s): M75.110 - Incomplete rotator cuff tear or rupture of unspecified shoulder, not specified as traumatic Category: Medical Qualifiers: Rotator cuff tear trauma status: unspecified whether traumatic Laterality: right Qualified Code(s): M75.111 - Incomplete rotator cuff tear or rupture of right shoulder, not specified as traumatic Plan: This is an active and healthy 44 yo RHD F with a high grade articular sided RTC tear. This has been present for > 6 mo after a fall and she has failed conservative measures including NSAIDs and PT. I recommend RTC repair. I explained this to her. I discussed the risks benefits and alternatives including but not limited to the risk of pain, infection, stiffness, need for further surgery as well as potential medical complications such as blood clots, pulmonary embolism and cardiac complications. I explained the surgery in detail and the post operative time course and recovery and my expectations for her post op recovery. She expressed understanding,. Orders: Orders XR knee RT 3V 12/19/24 M25.561 - Pain in right knee XR knee standing BI 12/19/24 M25.569 - Pain in unspecified knee Coding Level of Care Code Est Pt Level 4 (38330) Diagnoses Incomplete tear of right rotator cuff, unspecified whether traumatic M75.111 Rotator cuff tear trauma status: unspecified whether traumatic Laterality: right
== END 2024-12-19 10:35 | disposition home or self-care (01) ==
PROVIDERS: PCP Internal Medicine; Visit Provider Orthopaedic Surgery
DX: M75.111 Incomplete rotator cuff tear or rupture of right shoulder, not specified as traumatic (principal)
CPT/HCPCS: 99213

== ENCOUNTER 2024-12-19 08:51 | Outpatient (REF) | payer OTHER, SELFPAY | END 2024-12-19 08:52 | disposition home or self-care (01) | LOC: HO.HOSX 08:51 | PROVIDERS: PCP Internal Medicine; Visit Provider Orthopaedic Surgery | DX: M75.111 Incomplete rotator cuff tear or rupture of right shoulder, not specified as traumatic (principal) | CPT/HCPCS: 99212 ==

== ENCOUNTER 2024-12-22 16:19 | Outpatient (AMB) | payer OTHER, SELFPAY ==
[2024-12-22 16:28] VITALS: BP 122/78; PULSE 78; O2SAT 98; BMI 31.4
--- NOTE | 2024-12-22 16:28 | MHC.PC.OV ---
Vital Signs 12/22/24 16:28 Height 5 ft 3 in Weight 177 lb 2 oz BMI 31.4 BP 122/78 Blood Pressure Location Lt brachial Position Sitting Pulse 78 Pulse Source Pulse Oximeter Pulse Oximetry (%) 98 Oxygen Delivery Method Room Air Intake Visit Reasons: Annual exam Dope Sprayer Required: No Accompanied by: Self / Same As Patient Allergies No Known Drug Allergies Allergy (Unknown, Verified 12/22/24 16:59) Unknown Medication List - Last Reconciled 12/22/24 by Michoacano Lynch MD acetaminophen ER (Arthritis Pain Relief (acetaminophen) ER) 650 mg PO Q8H PRN levocetirizine 5 mg PO DAILY meloxicam 15 mg PO DAILY 30 days tizanidine 4 mg PO BID PRN 30 days Tobacco use date assessed: 12/22/24 Dental Screening Dental Screen Date: 12/22/24 Did you have a dental visit in the last 12 months?: Yes Did you have a dental problem in the last 6 months where you did not have access to dental care?: No Was dental information given to patient?: Patient has dentist HPI Annual exam HPI Details Patient comes in today for her annual physical examination States that she feels okay She continues to have increased pain and limited ROM of her right shoulder, which has been bothering her since her injury in [place] on 06/08/2024 Recalls that she tripped over a gasoline hose while her was gassing up their car at a gas station and she grabbed the car door with her right arm and immediately felt a sharp pain in her right shoulder Her right shoulder has been bothering her since She has tried rehabbing her right shoulder with physical therapy over the past few months without any significant improvement of her symptoms An MRI of the right shoulder was done back on 10/07/2024, which revealed (+) rotator cuff tear in the shoulder involving both supraspinatus and infraspinatus tendons She was seen by Orthopedics last week and was recommended to undergo a right rotator cuff repair - she is currently scheduled for this next month on 01/28/2025 She denies any headaches or dizziness Denies any chest pains, no SOB No nausea/vomiting, no abdominal pain No change in bowel habits noted She denies any acute urinary symptoms She had her follow up labs done last week - to discuss her results She had her annual mammography last done at [facility] in December 2023 and is scheduled for her next mammogram tomorrow States that she had her yearly pap smear and gynecology exam done at [facility] last week [facility] Medical History (Updated 12/23/24 @ 02:59 by Michoacano Lynch MD) Anxiety Depression Vitamin D deficiency Obesity (BMI 30-39.9) Multiple environmental allergies Surgical History Status post left oophorectomy (~12/2017) Family History Father Colon cancer Mother No problems noted. Social History Housing: House Alcohol intake: current Alcohol intake frequency: holidays/special occasions only Patient Tobacco Use Status: Never used Tobacco e-Cigarette/Vaping Use: Never Used Second Hand Smoke Exposure: Yes service: No Current occupational status: employed Current occupation: [employer], right hand dominant Cognitive needs: No Hearing needs: No Vision needs: No Questionnaire PHQ-9 Over the last 2 weeks, how often have you been bothered by any of the following problems? 1. Little interest or pleasure in doing things: nearly every day 2. Feeling down, depressed, or hopeless: nearly every day 3. Trouble falling or staying asleep, or sleeping too much: nearly every day 4. Feeling tired or having little energy: nearly every day 5. Poor appetite or overeating: nearly every day 6. Feeling bad about yourself - or that you are a failure or have let yourself or your family down: nearly every day 7. Trouble concentrating on things, such as reading the newspaper or watching television: nearly every day 8. Moving or speaking so slowly that other people could have noticed. Or the opposite - being so fidgety or restless that you have been moving around a lot more than usual: nearly every day 9. Thoughts that you would be better off or of hurting yourself in some way: nearly every day Total score: 27 Depression Screening Interpretation: Positive (since father from cancer in 05/2022) Depression Screening Follow-up: Community Mental Health Worker F/U, Follow-up Visit Requested and Declines treatment Depression Screening Done: Yes 98726 - PHQ-9 Billing: Yes Source: Developed by Drs. Bear Armenta, Pema Power, Napoleon Mckee and colleagues, with an educational calderon from [employer]. Thrive Questionnaire Date Thrive assessed: 12/22/24 I am a: Patient What is your living situation today?: I have a steady place to live Within the past 12 months, did the food you bought not last and you didn't have the money to get more?: Never true Within the past 12 months, did you worry whether your food would run out before you got money to buy more?: Never true Do you have trouble paying for medicines?: No Do you have trouble getting transportation to medical appointments?: No Do you have trouble paying your heating and electricity bill?: No Do you have trouble taking care of your child, family member or friend?: No Do you have trouble with day-to-day activities such as bathing, preparing meals, shopping, managing finances, etc.?: No Are you currently unemployed and looking for a job?: No Are you interested in more education?: No Please select the resources that you would like help with: None Currently or been in a relationship where the following occur: No concerns reported THRIVE Score: 0 AUDIT C Alcohol Use Questionnaire (AUDIT-C) 1. How often do you have a drink containing alcohol?: 2-4 times a month 2. How many drinks containing alcohol do you have on a typical day when you are drinking?: 1 or 2 3. How often do you have six or more drinks on one occasion?: Less than monthly Total Score: 3 Score Reviewed/Action Taken: Yes SILVIANO-7 AMB Questionnaire SILVIANO-7 Date SILVIANO - 7 assessed: 12/22/24 Feeling nervous, anxious, or on edge: 1 = Several days Not being able to stop or control worryin = Several days Worrying too much about different things: 1 = Several days Trouble relaxin = Several days Being so restless that it is hard to sit still: 1 = Several days Becoming easily annoyed or irritable: 0 = Not at all Feeling afraid as if something awful might happen: 0 = Not at all Total SILVIANO-7 score (0-4 normal; 5-9 mild; 10-14 moderate; 15-21 severe): 5 Source: Developed by Drs. Bear Armenta, Pema Power, Napoleon Mckee and colleagues, with an educational calderon from [employer]. Review of Systems Const Denies chills, Denies fatigue, Denies fever(s), Denies headache(s) and Denies malaise Eyes Denies blurry vision, Denies change in vision, Denies irritation and Denies itchy eyes ENT Denies dysphagia, Denies dizziness, Denies otalgia, Denies headache(s), Denies nasal congestion, Denies neck pain, Denies odynophagia, Denies sinus pain and Denies sore throat Card Denies chest pain, Denies rapid heart rate, Denies irregular heart rhythm, Denies palpitations and Denies dyspnea Resp Denies chest congestion, Denies cough, Denies dyspnea and Denies wheezing GI Denies abdominal pain, Denies bloating, Denies constipation, Denies dysphagia, Denies heartburn, Denies diarrhea, Denies nausea, Denies odynophagia and Denies vomiting Denies hematuria, Denies urinary frequency, Denies dysuria, Denies urinary incontinence and Denies urinary urgency Musc Denies back pain, Reports arthralgias (in the right shoulder), Denies joint swelling, Denies muscle weakness and Denies neck pain Skin/Breast Denies breast pain, Denies breast mass, Denies change in pigmentation, Denies lesions, Denies rash and Denies unusual bruising Neuro Denies dizziness, Denies headache(s) and Denies paresthesias Psych Denies anxiety and Denies depression Endo Denies fatigue and Denies palpitations Joel/Lymph Denies easy bruising Aller/Immun Denies itchy eyes and Denies wheezing Physical exam (Primary Care) Vital Signs: Last Vital Signs Pulse 78 12/22/24 16:28 BP 122/78 12/22/24 16:28 Pulse Ox 98 12/22/24 16:28 Oxygen Delivery Method Room Air 12/22/24 16:28 BMI result Body Mass Index 31.4 Tobacco/Smoking Status: Tobacco use Status Tobacco use date assessed 12/22/24 12/22/24 16:30 Patient Tobacco Use Status Never used Tobacco 12/22/24 16:30 e-Cigarette/Vaping Use Never Used 12/22/24 16:30 PHQ-9: PHQ-9 Score PHQ-9: Total score 27 12/22/24 17:02 Depression Screening Interpretation: Positive (since father from cancer in 05/2022) Depression Screening Follow-up: Community Mental Health Worker F/U, Follow-up Visit Requested and Declines treatment Thrive Assessment: Date of Thrive Assessment Date Thrive assessed 12/22/24 12/22/24 16:30 Currently or been in a relationship where the following occur: No concerns reported Const General: no acute distress, alert and awake Orientation/consciousness: patient oriented x3 HENMT Head: Yes normocephalic and Yes atraumatic Ears: external ears normal, TM's normal bilaterally and EAC's normal General nose exam: No nasal discharge present Face and sinus: Yes normal facial exam and Yes sinuses nontender Teeth and gingiva: dentition normal Throat: Yes posterior oropharynx normal and Yes tonsils normal (no TP congestion) Eyes Eyelids: Yes eyelids normal Conjunctivae: conjunctivae normal Pupils: Equal, round and reactive pupils present EOM: EOMs intact bilaterally Neck Neck: Yes no lymphadenopathy and Yes supple Thyroid: Thyroid normal Resp Auscultation: clear to auscultation bilaterally, no rales and no wheezes Cardio Rate: regular rate Rhythm: regular rhythm Heart sounds: no murmurs GI Palpation (GI): Soft to palpation, nontender and No hepatosplenomegaly present Auscultation: normal bowel sounds General: Yes no CVA tenderness Back/Spine/Pelvis Back: no CVA tenderness Thoracic/Lumbar Spine: thoracic and lumbar spine normal to inspection Skin Lesions: no lesions Rashes: no rashes Neuro General: patient oriented x3, moves all extremities, no focal motor deficits and CN's II-XI intact bilaterally Cranial nerves: Yes Equal, round and reactive pupils present Cognition (Neuro): normal cognition Gait exam (Neuro): Normal gait present Extrem General: Yes no clubbing, cyanosis or edema Right upper extremity: shoulder/upper arm Details: tenderness Location: of the A-C joint and abnormal ROM (limited due to pain - unable to raise arm above shoulder level); no swelling Results Reviewed Results Reviewed: Laboratory Tests 12/15/24 12/15/24 09:30 09:33 WBC 6.1 Hgb 13.6 Hct 43.1 Plt Count 242 Sodium 139 Potassium 3.8 Creatinine 0.72 Estimated GFR > 60 Fasting Glucose 100 H Calcium 8.9 AST 21 ALT 17 Triglycerides 61 Cholesterol 135 LDL Cholesterol, Calc 74 HDL Cholesterol 49 25-OH Vitamin D Total 12.2 L TSH 1.88 Ur Specific [place] 1.020 Urine Protein Trace Urine Glucose (UA) Negative Urine Blood Negative Urine Nitrite Negative Ur Leukocyte Esterase Small (1+) H Coding Level of Care Code Est Pt Prev Care 40-64y(10631) Diagnoses Annual physical exam Z00.00 Multiple environmental allergies Z91.09 Incomplete tear of right rotator cuff, unspecified whether traumatic M75.111 Rotator cuff tear trauma status: unspecified whether traumatic Laterality: right Depression, unspecified depression type F32.A Depression Type: unspecified Obesity (BMI 30-39.9) E66.9 Additional Codes PHQ-9 - 11621 - PHQ-9 Billing: Yes ([id number]) Assessment & Plan Assessment & Plan (1) Annual physical exam: Code(s): Z00.00 - Encounter for general adult medical examination without abnormal findings Category: Medical Plan: Results of her labs done last week reviewed and discussed with patient She had her annual mammography last done at [facility] in December 2023 and is scheduled for her next mammogram tomorrow States that she had her yearly pap smear and gynecology exam done at [facility] last week (2) Multiple environmental allergies: Code(s): Z91.09 - Other allergy status, other than to drugs and biological substances Category: Medical Plan: Continue Levocetirizine 5 mg QD PRN (3) Partial thickness rotator cuff tear: Code(s): M75.110 - Incomplete rotator cuff tear or rupture of unspecified shoulder, not specified as traumatic Category: Medical Qualifiers: Rotator cuff tear trauma status: unspecified whether traumatic Laterality: right Qualified Code(s): M75.111 - Incomplete rotator cuff tear or rupture of right shoulder, not specified as traumatic Plan: Patient initially sustained her right shoulder injury back in May 2024 (see HPI for detail) She has failed physical therapy over the past few months and MRI done back on 10/07/2024 revealed (+) rotator cuff tear in the shoulder involving both supraspinatus and infraspinatus tendons She was recommended to undergo a right rotator cuff repair and she is now scheduled for surgery next month on 01/28/2025 (4) Depression: Code(s): F32.A - Depression, unspecified Category: Medical Qualifiers: Depression Type: unspecified Qualified Code(s): F32.A - Depression, unspecified Plan: Patient states that she continues to follow-up with her therapist/counselor regularly every week and she is doing well so far with this She continues to decline pharmacotherapy for depression at this time (5) Obesity (BMI 30-39.9): Code(s): E66.9 - Obesity, unspecified Category: Medical Plan: Reinforced diet/exercise as tolerated/lose weight Plan Follow up in 4 months Medications: New cholecalciferol (vitamin D3) 50 mcg PO DAILY 90 days 90 caps 3RF E55.9 - Vitamin D deficiency, unspecified
== END 2024-12-22 17:20 | disposition home or self-care (01) ==
PROVIDERS: PCP Internal Medicine; Visit Provider Internal Medicine
DX: Z00.00 Encounter for general adult medical examination without abnormal findings (principal); F32.A Depression, unspecified; E66.9 Obesity, unspecified; Z68.31 Body mass index [BMI] 31.0-31.9, adult; Z91.09 Other allergy status, other than to drugs and biological substances; M75.111 Incomplete rotator cuff tear or rupture of right shoulder, not specified as traumatic

== ENCOUNTER → 2024-12-22 16:19 | Outpatient (BNVA) | payer OTHER, SELFPAY | PROVIDERS: PCP Internal Medicine; Visit Provider Internal Medicine | DX: Z00.00 Encounter for general adult medical examination without abnormal findings (principal); Z91.09 Other allergy status, other than to drugs and biological substances; M75.111 Incomplete rotator cuff tear or rupture of right shoulder, not specified as traumatic; F32.A Depression, unspecified; E66.9 Obesity, unspecified | CPT/HCPCS: 96127; 99396 ==

== ENCOUNTER 2025-01-22 10:13 | Outpatient (AMB) | payer OTHER, SELFPAY ==
--- NOTE | 2025-01-21 08:31 | MHC.OFFVIS ---
Intake Visit Reasons: Preop RT RTC repair 01/28/25 NE Intake Note: Tequila is a 44 year old female who presents today for rep op appointment for her right shoulder RTC repair 01/28/25 NE. Allergies No Known Drug Allergies Allergy (Unknown, Verified 12/22/24 16:59) Unknown [facility] Medical History (Updated 12/23/24 @ 02:59 by Michoacano Lynch MD) Anxiety Depression Vitamin D deficiency Obesity (BMI 30-39.9) Multiple environmental allergies Surgical History Status post left oophorectomy (~12/2017) Family History Father Colon cancer Mother No problems noted. Social History Housing: House Alcohol intake: current Alcohol intake frequency: holidays/special occasions only Patient Tobacco Use Status: Never used Tobacco e-Cigarette/Vaping Use: Never Used Second Hand Smoke Exposure: Yes service: No Current occupational status: employed Current occupation: [employer], right hand dominant Cognitive needs: No Hearing needs: No Vision needs: No Coding
--- NOTE | 2025-01-22 10:17 | A.OFFVIS_ITS ---
Vital Signs 01/22/25 10:29 Height 5 ft 3 in Weight 177 lb BMI 31.4 Handedness Right Intake Visit Reasons: Preop RT RTC repair 01/28/25 NE Intake Note: Tequila is a 44 year old right hand dominant female who presents today for rep op appointment for her right shoulder RTC repair 01/28/25 NE. No problems after anaesthesia. Allergies No Known Drug Allergies Allergy (Unknown, Verified 01/22/25 10:29) Unknown HPI HPI Preop RT RTC repair 01/28/25 NE: Details: Ms. Ta is a 44-year-old [id number] female who presents the office today for preoperative history and physical appointment pending right shoulder rotator cuff repair scheduled for 01/28/[address] Elena. [facility] Medical History (Updated 12/23/24 @ 02:59 by Michoacano Lynch MD) Anxiety Depression Vitamin D deficiency Obesity (BMI 30-39.9) Multiple environmental allergies Surgical History Status post left oophorectomy (~12/2017) Family History Father Colon cancer Mother No problems noted. Social History Housing: House Alcohol intake: current Alcohol intake frequency: holidays/special occasions only Patient Tobacco Use Status: Never used Tobacco e-Cigarette/Vaping Use: Never Used Second Hand Smoke Exposure: Yes service: No Current occupational status: employed Current occupation: [employer], right hand dominant Cognitive needs: No Hearing needs: No Vision needs: No Review of Systems Const All systems reviewed & are unremarkable except as noted in HPI and below Physical Exam Vital Signs: BMI result Body Mass Index 31.4 Const General: cooperative and no acute distress Orientation/consciousness: patient oriented x3 Resp Effort & Inspection: normal respiratory effort and able to speak in complete sentences Cardio Peripheral pulses: Peripheral pulses 2+ throughout Neuro General: patient oriented x3 Extrem Other: Right shoulder normal to inspection. FF to 100 with compensation of scapular region, ER to 90, IR to S1. She is able to perform rotator cuff strength testing however there is significant compensation on the right side when carloz red to contralateral side. NVI. Assessment & Plan Assessment & Plan (1) Partial thickness rotator cuff tear: Code(s): M75.110 - Incomplete rotator cuff tear or rupture of unspecified shoulder, not specified as traumatic Category: Medical Qualifiers: Rotator cuff tear trauma status: unspecified whether traumatic Laterality: right Qualified Code(s): M75.111 - Incomplete rotator cuff tear or rupture of right shoulder, not specified as traumatic Plan I discussed in detail the procedure and what to expect pre and post operatively. We discussed the risks, benefits and alternatives to the surgery as well as the rehabilitation course. The risks; which include, but are not limited to infection, bleeding, nerve injury, ongoing pain, swelling, and stiffness, perioperative risk of injury to bones and soft tissues, and blood clots. Additionally the patient was fit for the abduction sling office show full knee office today. Post operative medications were sent to the pharmacy,?Percocet as well as MS Contin to the pharmacy while in the office today. The patient was instructed that?he/she?should obtain the prescription prior to surgery but should not consume until after the procedure; as these should only be taken for postoperative pain management. Should the patient take these medications before surgery, a refill will not be sent to the pharmacy until their scheduled refill date.?? Oxycodone-acetaminophen 5-325 mg (Percocet) PO Q4-6H PRN, quantity 42 tabs for 7 days and morphine ER 15 mg (MS Contin) PO Q12H PRN, quantity 6 tabs for 3 days? I?ve answered all questions and with their understanding they have consented to move forward with right shoulder rotator cuff repair with Dr. Elena. Medications: New oxycodone-acetaminophen 5-325 mg Partial Fill upon patient request. 1 tab PO Q4-6H 7 days PRN 42 tabs 0RF pain morphine ER (MS Contin) Partial Fill upon patient request. 15 mg PO Q12H 3 days 6 tabs 0RF Coding Level of Care Code Global (30446) Diagnoses Incomplete tear of right rotator cuff, unspecified whether traumatic M75.111 Rotator cuff tear trauma status: unspecified whether traumatic Laterality: right
[2025-01-22 10:29] VITALS: BMI 31.4
== END 2025-01-22 10:55 | disposition home or self-care (01) ==
LOC: HO.HOS 10:14
PROVIDERS: PCP Internal Medicine; Visit Provider Physician Assistant
DX: M75.111 Incomplete rotator cuff tear or rupture of right shoulder, not specified as traumatic (principal)
CPT/HCPCS: 99024

== ENCOUNTER → 2025-01-22 10:13 | Outpatient (BNVA) | payer OTHER, SELFPAY | PROVIDERS: PCP Internal Medicine; Visit Provider Physician Assistant | DX: Z01.818 Encounter for other preprocedural examination (principal); M75.111 Incomplete rotator cuff tear or rupture of right shoulder, not specified as traumatic | CPT/HCPCS: 99212 ==

== ENCOUNTER 2025-01-28 06:05 | Day surgery (SDC) | payer OTHER, SELFPAY ==
[2025-01-26 08:18] VITALS: BMI 31.4
--- NOTE | 2025-01-27 10:56 | P.CONAN_ITS ---
Documented by User: Gale Lu NP 01/27/25 10:57 HPI - Anesthesia Eval Consult details Narrative: 44yo F for Right Arthroscopic Rotator Cuff Repair PMFSH Active Problems Active Problems: All Active Problems Partial thickness rotator cuff tear (Acute) Right shoulder pain (Acute) Right rotator cuff tendinitis (Acute) Impingement syndrome of right shoulder (Acute) Anxiety (Acute) Vitamin D deficiency (Acute) Obesity (BMI 30-39.9) (Acute) Multiple acquired skin tags (Acute) Depression (Acute) Motion sickness (Acute) Grief reaction (Acute) Multiple environmental allergies (Acute) Overweight (BMI 25.0-29.9) (Acute) Annual physical exam (Acute) Past Medical History Medical History Anxiety Depression Vitamin D deficiency Obesity (BMI 30-39.9) Multiple environmental allergies Family History Family History Father Colon cancer Mother No problems noted. Surgical History Surgical History Status post left oophorectomy (~12/2017) Social History Social History Housing: House Alcohol intake: current Alcohol intake frequency: holidays/special occasions only Patient Tobacco Use Status: Never used Tobacco e-Cigarette/Vaping Use: Never Used Second Hand Smoke Exposure: Yes Use of substances other than those prescribed or required for medical reasons: No Are you DNR?: No Advance Directives: No Advance Directives Information Provided: Yes service: No Current occupational status: employed Current occupation: [employer], right hand dominant Cognitive needs: No Hearing needs: No Vision needs: No Meds Allergies Allergy/AdvReac Type Severity Reaction Status Date / Time No Known Drug Allergies Allergy Unknown Unknown Verified 01/22/25 10:29 Home Medications ?Medication ?Instructions ?Recorded ?Confirmed ?Last Taken ?Type levocetirizine 5 mg tablet 5 mg PO DAILY 12/18/23 01/28/25 Unknown History Exam Height,Weight and Vital Signs: Height 5 ft 3 in Weight 80.286 kg Pertinent Lab Results Pertinent Lab Results: Laboratory Tests 12/15/24 09:33 WBC 6.1 Hgb 13.6 Hct 43.1 Plt Count 242 Sodium 139 Potassium 3.8 Chloride 105 Carbon Dioxide 26 BUN 11 Creatinine 0.72 Assessment and Plan Assessment Anesthesia Assessment: Chart Reviewed Documented by User: Cass Garcia MD 01/28/25 10:01 [facility] Past Medical History Medical History Anxiety Depression Vitamin D deficiency Obesity (BMI 30-39.9) Multiple environmental allergies Family History Family History Father Colon cancer Mother No problems noted. Family history of problems with anesthesia: No Surgical History Surgical History Status post left oophorectomy (~12/2017) History of Problems with Anesthesia: No Social History Social History Housing: House Alcohol intake: current Alcohol intake frequency: holidays/special occasions only Patient Tobacco Use Status: Never used Tobacco e-Cigarette/Vaping Use: Never Used Second Hand Smoke Exposure: Yes Use of substances other than those prescribed or required for medical reasons: No Are you DNR?: No Advance Directives: No Advance Directives Information Provided: Yes service: No Current occupational status: employed Current occupation: [employer], right hand dominant Cognitive needs: No Hearing needs: No Vision needs: No Meds Allergies Allergy/AdvReac Type Severity Reaction Status Date / Time No Known Drug Allergies Allergy Unknown Unknown Verified 01/22/25 10:29 Home Medications ?Medication ?Instructions ?Recorded ?Confirmed ?Last Taken ?Type levocetirizine 5 mg tablet 5 mg PO DAILY 12/18/23 01/28/25 Unknown History Exam Airway Mallampati Class: II TM Dist: >3cm Neck ROM: Full Heart: rrr Lungs: cta Assessment and Plan Assessment Anesthesia Assessment: Anesthesia Plan Discussed Final Anesthetic Review Family History of Problems with Anesthesia: No History of Problems with Anesthesia: No NPO: Yes ASA Class: II Final Preanesthetic Review: No Changes in Pt Med Stat, Meds/Allgs Chart Re viewed, Consent Obtained/Reviewed and Anes Risks/Benef Reviewed Patient Risk: Low Procedure Risk: Intermediate Anesthetic Plan Anesthetic Plan: GA, Regional Block and Agree w/ Assess. and Plan Disposition: Standard PACU
[2025-01-28] VITALS (7 sets, daily range): BP systolic 151–164; BP diastolic 88–96; PULSE 74–99; RESP 16–18; TEMP 36.2–36.9; O2SAT 95–100; BMI 31.2
[2025-01-28 06:29] LABS: UPreg QC Valid YES; Urine Pregnancy NEGATIVE (NEGATIVE)
--- NOTE | 2025-01-28 07:02 | MHC.SHP ---
Pre-Procedural Eval Section A - 24 Hr Update-Section A only Date of Service: 01/28/25 The patient is an INPATIENT: No Changes since office visit: No Cold of Flu in the past 2 weeks, No New Medical Problems, No Changes in Medication and No Patient answered all questions The patient has been examined within 24 hours of the surgical procedure. The History & Physical has been completed within 30 days and I have reviewed it.: Yes Section B - Complete if H&P > 30 days Chief Complaint: Complete rotator cuff tear or rupture of right Allergies: Allergies Allergy/AdvReac Type Severity Reaction Status Date / Time No Known Drug Allergies Allergy Unknown Unknown Verified 01/22/25 10:29 Plan I have reviewed the history and physical and performed a pertinent physical examination on my patient. No changes have occurred unless specified. Time Spent With Patient Time: Total time managing care of this patient today ____ minutes.
[2025-01-28] MEDS: Lactated Ringers 1,000 ML 100 ML IVCONT (07:04)
[2025-01-28] MEDS: ceFAZolin Sodium/Dextrose,Iso 2 GM/50 ML PIGGYBACK IV (07:56)
[2025-01-28] MEDS: Acetaminophen 1,000 MG/100 ML PIGGYBACK 400 MG IV (08:45)
--- NOTE | 2025-01-28 08:58 | P.BOP_ITS ---
Brief Operative Note Date of Service: 01/28/25 Pre-op diagnosis: Right rotator cuff tear Post-op diagnosis: same Procedure: Right rotator cuff repair Implants: [employer]hew 4.75 double loaded medial anchors and 2 5.0 lateral anchors Surgeon: Maldonado Elena MD Anesthesia: GETA and regional Was an Fruit Or Nut Farm Worker used for this Procedure?: No Estimated blood loss (mL): 20 IV fluids (mL): 800 Pathology: none sent Condition: stable Disposition: PACU
[2025-01-28] MEDS: Ondansetron ODT 4 MG TAB.RAPDIS TRANSLINGU (10:47)
--- NOTE | 2025-01-28 10:47 | HO.INF ---
PATIENT GIVEN ZOFRAN 4 MG SL FOR COMPLAINT OF CONTINUED NAUSEA.
--- NOTE | 2025-01-28 11:09 | HO.INF ---
PATIENT STATES FEELING BETTER AFTER TAKING ZOFRAN SL. COLOR LESS PALE.
--- NOTE | 2025-01-28 11:23 | P.OP_ITS ---
Operative Note Operative Note Date of Service: 01/28/25 Narrative: Date of Service: 01/28/25 Pre-op diagnosis: Right rotator cuff tear Post-op diagnosis: same Procedure: Right rotator cuff repair Implants: [employer]hew 4.75 double loaded medial anchors and 2 5.0 lateral anchors Surgeon: Maldonado Elena MD Anesthesia: GETA and regional Was an Plant Health Manager used for this Procedure?: No Estimated blood loss (mL): 20 IV fluids (mL): 800 Pathology: none sent Condition: stable Disposition: PACU Procedure in detail: Patient was brought to the operating room and placed the the beach chair position. All bony prominences were well padded and the limb was prepped and draped in standard sterile fashion. A time out was called to identify proper site, proper procedure and proper surgeon. IV antibiotics per weight were administered. I began by making a posterolateral stab incision with a 15 blade. A blunt trochar was placed into the glenohumeral joint and I insufflated the joint with saline and a 30 degree arthroscope was placed. I established an outside- in anterior portal just distal to the biceps tendon. I then began my inspection of the glenohumeral joint. The glenohumeral joint was free of arthritis. There were no changes to the subscapularis or the biceps tendon. There was a high-grade undersurface tear of the supraspinatus and the anterior portion of the infraspinatus. A spinal needle was used to identify the location of the most posterior aspect of the infraspinatus tear. I then removed the trochar and entered the subacromial space. A direct lateral portal was then established and I performed a bursectomy. The cuff was then examined. A shaver was used to debride the bursa and there was a partial tear of the supraspinatus and given the underlying undersurface tear the shaver was gently used to identify a area of high-grade tear and near full-thickness t earing. This was debrided and the remaining fibers were removed revealing a full-thickness tear of the entirety of the supraspinatus and the anterior 3rd of the infraspinatus. The tear was mobile. I placed two medial row double loaded anchors after using a tap just adjacent to the articular cartilage and then brought the suture limbs ( 8) through the medial cuff. I then debrided the bare area down to bleeding bone and, using a cross bridge configuration, brought 4 limbs to each of two lateral 5.0 anchors. This re-approximated the cuff anatomy anatomically. Once I was satisfied with the repair final images were captured and I removed all instrumentation. Portals were closed with nylon. Patient was placed in an abduction sling, extubated and brought to the recovery room in stable condition. There were no known complications.
== END 2025-01-28 11:24 | disposition home or self-care (01) ==
LOC: HO.SSS 06:05
PROVIDERS: Nurse Practitioner; PCP Internal Medicine; Visit Provider Orthopaedic Surgery
PROC: (CPT 29827; principal; 2025-01-28 07:30)
DX: M75.111 Incomplete rotator cuff tear or rupture of right shoulder, not specified as traumatic (principal); F33.2 Major depressive disorder, recurrent severe without psychotic features; F41.9 Anxiety disorder, unspecified; E55.9 Vitamin D deficiency, unspecified; E66.9 Obesity, unspecified; Z68.31 Body mass index [BMI] 31.0-31.9, adult; J30.89 Other allergic rhinitis; Z98.890 Other specified postprocedural states; Z79.899 Other long term (current) drug therapy
CPT/HCPCS: 29827; 81025; C1713; J0131; J0171; J0665; J0690; J1100; J2003; J2250; J2405; J2704; J3010

== ENCOUNTER → 2025-01-28 06:05 | Outpatient (BNV) | payer OTHER, SELFPAY | PROVIDERS: PCP Internal Medicine; Visit Provider Orthopaedic Surgery | DX: S46.011A Strain of muscle(s) and tendon(s) of the rotator cuff of right shoulder, initial encounter (principal) | CPT/HCPCS: 29827 ==

== ENCOUNTER 2025-02-03 13:27 | Outpatient (AMB) | payer OTHER, SELFPAY ==
--- NOTE | 2025-02-03 13:28 | MHC.OFFVIS ---
Intake Visit Reasons: PO - RT RTC repair 01/28/25 NE Intake Note: Tequila is a 44 year old right hand dominant female who presents today for a post op appointment s/p right shoulder RTC repair 01/28/25 NE. Patient reports she is having pain. She is having concerns of not having a bowel movement yet, but she is passing gas. Allergies No Known Drug Allergies Allergy (Unknown, Verified 02/03/25 13:39) Unknown HPI HPI PO - RT RTC repair 01/28/25 NE: Details: Ms. Ta is a 44-year-old female who presents to the office today status post right shoulder rotator cuff repair performed on 01/28/[address] Elena. She presents to the office today in the abduction sling positioned appropriately. She reports that the narcotic pain medication has given her constipation. She called the office a few days ago when a prescription for Colace was sent to the pharmacy. She reports that she is passing flatus and did have a bowel movement yesterday. [facility] Medical History Anxiety Depression Vitamin D deficiency Obesity (BMI 30-39.9) Multiple environmental allergies Surgical History Status post left oophorectomy (~12/2017) Family History Father Colon cancer Mother No problems noted. Social History Housing: House Alcohol intake: current Alcohol intake frequency: holidays/special occasions only Patient Tobacco Use Status: Never used Tobacco e-Cigarette/Vaping Use: Never Used Second Hand Smoke Exposure: Yes service: No Current occupational status: employed Current occupation: [employer], right hand dominant Cognitive needs: No Hearing needs: No Vision needs: No Review of Systems Const All systems reviewed & are unremarkable except as noted in HPI and below Physical Exam Extrem Other: Right shoulder incision sites are clean dry and intact. Sutures intact. No surrounding erythema or drainage. No signs of infection. Forward flexion abduction to 45 degrees. External rotation to neutral. NVI. Assessment & Plan Assessment & Plan (1) Status post rotator cuff repair: Code(s): Z98.890 - Other specified postprocedural states Category: Surgical Plan Ms. Ta is a 44-year-old female who presents to the office today status post right shoulder rotator cuff repair performed on 01/28/[address] Elena. She presents to the office today in the abduction sling positioned appropriately. She reports that the narcotic pain medication has given her constipation. She called the office a few days ago when a prescription for Colace was sent to the pharmacy. She reports that she is passing flatus and did have a bowel movement yesterday. On the office today, the patient's sutures were removed and Steri-Strips were applied. She was instructed to remain in the sling at all times for 6 weeks postoperatively. A physical therapy order has also been provided while in the office today and physical therapy appointments will be scheduled appropriately. She requested a refill of oxycodone to assist with pain management. A prescription for oxycodone 02/21/2025 q.6 hours PRN for 7 days was sent to the pharmacy. Additionally, I addressed the patient's constipation suggesting coffee, prune juice, movement. She should take the Colace in the morning if she develops diarrhea she can not decreased from 2 tablets to 1 tablet. If the patient continues to have severe constipation she can try [id number] magnesium citrate. I did educate the patient on warning signs of bowel obstruction including unable to pass flatus. Patient understands and accepts. She will follow up in [address] Elena, sooner if needed. Coding Level of Care Code Global (26926) Diagnoses Status post rotator cuff repair Z98.890
== END 2025-02-03 13:55 | disposition home or self-care (01) ==
LOC: HO.HOS 13:27
PROVIDERS: PCP Internal Medicine; Visit Provider Physician Assistant
DX: Z98.890 Other specified postprocedural states (principal)
CPT/HCPCS: 99024

== ENCOUNTER → 2025-02-03 13:27 | Outpatient (BNVA) | payer OTHER, SELFPAY | PROVIDERS: PCP Internal Medicine; Visit Provider Physician Assistant | DX: Z47.89 Encounter for other orthopedic aftercare (principal); Z98.890 Other specified postprocedural states | CPT/HCPCS: 99212 ==

== ENCOUNTER 2025-03-05 13:35 | Outpatient (AMB) | payer OTHER, SELFPAY ==
--- NOTE | 2025-03-05 13:39 | MHC.OFFVIS ---
Intake Visit Reasons: PO - RT RTC repair 01/28/25 NE Intake Note: Mike is a 44 year old right hand dominant female who presents today for a post operative appointment s/p Right RTC Repair 01/28/25. Patient reports that she has hat a lot of pain in the right side of her neck as well as headache. She is taking prescribed medication which is helping. She reports that the numbness and tinglnig in her fingers is resolving. She occasionally gets a non painful spasm of the right arm. She has been wearing the sling at all times./ Allergies No Known Drug Allergies Allergy (Unknown, Verified 03/05/25 13:42) Unknown HPI HPI PO - RT RTC repair 01/28/25 NE: Details: s/p right RTC repair. Doing well. Using her arm at home. Started PT but just. [facility] Medical History Anxiety Depression Vitamin D deficiency Obesity (BMI 30-39.9) Multiple environmental allergies Surgical History Status post left oophorectomy (~12/2017) Family History Father Colon cancer Mother No problems noted. Social History Housing: House Alcohol intake: current Alcohol intake frequency: holidays/special occasions only Patient Tobacco Use Status: Never used Tobacco e-Cigarette/Vaping Use: Never Used Second Hand Smoke Exposure: Yes service: No Current occupational status: employed Current occupation: [employer], right hand dominant Cognitive needs: No Hearing needs: No Vision needs: No Physical Exam Extrem Other: portals c/d/i NVI Assessment & Plan Assessment & Plan (1) Status post rotator cuff repair: Code(s): Z98.890 - Other specified postprocedural states Category: Surgical Plan: s/p left RTC repair. PT per protocol. f/u 6 weeks, d/c Slign and discussed resrictions Coding Level of Care Code Global (81079) Diagnoses Status post rotator cuff repair Z98.890
== END 2025-03-05 13:50 | disposition home or self-care (01) ==
LOC: HO.HOS 13:36
PROVIDERS: PCP Internal Medicine; Visit Provider Orthopaedic Surgery
DX: Z98.890 Other specified postprocedural states (principal)
CPT/HCPCS: 99024

== ENCOUNTER → 2025-03-05 13:35 | Outpatient (BNVA) | payer OTHER, SELFPAY | PROVIDERS: PCP Internal Medicine; Visit Provider Orthopaedic Surgery | DX: Z47.89 Encounter for other orthopedic aftercare (principal); Z98.890 Other specified postprocedural states | CPT/HCPCS: 99212 ==

== ENCOUNTER 2025-04-16 13:39 | Outpatient (AMB) | payer OTHER, SELFPAY ==
--- NOTE | 2025-04-16 13:52 | MHC.OFFVIS ---
Intake Visit Reasons: PO - RT RTC repair 01/28/25 NE 6Wk F/U Intake Note: Mike is a 44 year old right hand dominant female who presents today for a post operative appointment about 3 months s/p Right RTC Repair 01/28/25. Patient reports that she is doing well, she is improving but has pain mostly felt at night . She is taking Tylenol and Ibuprofen with no releif. She has a hard time with above the head ROM - which she continues to work with PT. Allergies No Known Drug Allergies Allergy (Unknown, Verified 03/05/25 13:42) Unknown HPI HPI PO - RT RTC repair 01/28/25 NE 6Wk F/U: Details: Tequila is 3 months status post right rotator cuff repair. She is doing okay but feels like she has plateaued. Her motion is good but she still has some pinching pain with overhead activity. [facility] Medical History Anxiety Depression Vitamin D deficiency Obesity (BMI 30-39.9) Multiple environmental allergies Surgical History Status post left oophorectomy (~12/2017) Family History Father Colon cancer Mother No problems noted. Social History Housing: House Alcohol intake: current Alcohol intake frequency: holidays/special occasions only Patient Tobacco Use Status: Never used Tobacco e-Cigarette/Vaping Use: Never Used Second Hand Smoke Exposure: Yes service: No Current occupational status: employed Current occupation: [employer], right hand dominant Cognitive needs: No Hearing needs: No Vision needs: No Physical Exam Extrem Other: 45/90/120/L5 Negative empty can Pain with passive forward flexion past 90. Minimal pain with passive abduction Assessment & Plan Assessment & Plan (1) Status post rotator cuff repair: Code(s): Z98.890 - Other specified postprocedural states Category: Surgical Plan: Status post rotator cuff repair. She is doing well with respect to motion but still with pain at night. I recommend Naprosyn and that she take a step back from overdoing the rotator cuff exercises and focus more on periscapular strengthening. She can follow up in 3 months. Medications: New naproxen (EC-Naprosyn) 500 mg PO BID PRN 60 tabs 2RF pain Coding Level of Care Code Global (85249) Diagnoses Status post rotator cuff repair Z98.890
== END 2025-04-16 14:36 | disposition home or self-care (01) ==
LOC: HO.HOS 13:40
PROVIDERS: PCP Internal Medicine; Visit Provider Orthopaedic Surgery
DX: Z98.890 Other specified postprocedural states (principal)
CPT/HCPCS: 99024

== ENCOUNTER → 2025-04-16 13:39 | Outpatient (BNVA) | payer OTHER, SELFPAY | PROVIDERS: PCP Internal Medicine; Visit Provider Orthopaedic Surgery | DX: M25.511 Pain in right shoulder (principal); Z98.890 Other specified postprocedural states | CPT/HCPCS: 99212 ==

== ENCOUNTER 2025-04-29 14:28 | Outpatient (AMB) | payer OTHER, SELFPAY ==
--- NOTE | 2025-04-29 14:32 | MHC.PC.OV ---
Vital Signs 04/29/25 14:34 Height 5 ft 3 in Weight 173 lb 2 oz BMI 30.7 BP 138/90 H Blood Pressure Location Lt brachial Position Sitting Pulse 72 Pulse Source Pulse Oximeter Pulse Oximetry (%) 98 Oxygen Delivery Method Room Air Intake Visit Reasons: 4 month f/u Dedicated Regional Driver Required: No Accompanied by: Self / Same As Patient Allergies No Known Drug Allergies Allergy (Unknown, Verified 04/29/25 15:08) Unknown Medication List - Last Reconciled 04/29/25 by Michoacano Lynch MD acetaminophen ER (Arthritis Pain Relief (acetaminophen) ER) 650 mg PO Q8H PRN cholecalciferol (vitamin D3) 50 mcg PO DAILY 90 days docusate sodium 200 mg (2 x 100 mg) PO DAILY levocetirizine 5 mg PO DAILY naproxen (EC-Naprosyn) 500 mg PO BID PRN Tobacco use date assessed: 04/29/25 Dental Screening Dental Screen Date: 04/29/25 Did you have a dental visit in the last 12 months?: Yes Did you have a dental problem in the last 6 months where you did not have access to dental care?: No Was dental information given to patient?: Patient has dentist HPI 4 month f/u HPI Details Patient comes in today for her follow up visit States that she is currently still experiencing frequent pain/tightness/discomfort in her right shoulder She had rotator cuff repair/surgery done on the right shoulder with Dr. Elena a few months ago on 01/28/2025 Feels that the surgery has helped a lot although she has not yet completely recovered from the surgery She is currently still going to physical therapy and has a follow up appointment with orthopedics in June [address] Elena sent in a prescription for Naproxen ER for her about 1 to 2 weeks ago but she has not yet picked up her Rx from her pharmacy States that she feels okay otherwise She denies any headaches or dizziness Denies any chest pains, no increased SOB No nausea/vomiting, no abdominal pain No change in bowel habits noted PFSH Medical History Anxiety Depression Vitamin D deficiency Obesity (BMI 30-39.9) Multiple environmental allergies Surgical History Status post left oophorectomy (~12/2017) Family History Father Colon cancer Mother No problems noted. Social History Housing: House Alcohol intake: current Alcohol intake frequency: holidays/special occasions only Patient Tobacco Use Status: Never used Tobacco e-Cigarette/Vaping Use: Never Used Second Hand Smoke Exposure: Yes service: No Current occupational status: employed Current occupation: [employer], right hand dominant Cognitive needs: No Hearing needs: No Vision needs: No Questionnaire PHQ-9 Over the last 2 weeks, how often have you been bothered by any of the following problems? 1. Little interest or pleasure in doing things: not at all 2. Feeling down, depressed, or hopeless: not at all 3. Trouble falling or staying asleep, or sleeping too much: several days 4. Feeling tired or having little energy: not at all 5. Poor appetite or overeating: not at all 6. Feeling bad about yourself - or that you are a failure or have let yourself or your family down: not at all 7. Trouble concentrating on things, such as reading the newspaper or watching television: not at all 8. Moving or speaking so slowly that other people could have noticed. Or the opposite - being so fidgety or restless that you have been moving around a lot more than usual: not at all 9. Thoughts that you would be better off or of hurting yourself in some way: not at all Total score: 1 Depression Screening Interpretation: Negative Depression Screening Done: Yes 94322 - PHQ-9 Billing: Yes Source: Developed by Drs. Bear Armenta, Pema Power, Napoleon Mckee and colleagues, with an educational calderon from [employer]. Thrive Questionnaire Date Thrive assessed: 04/29/25 I am a: Patient What is your living situation today?: I have a steady place to live Within the past 12 months, did the food you bought not last and you didn't have the money to get more?: Never true Within the past 12 months, did you worry whether your food would run out before you got money to buy more?: Never true Do you have trouble paying for medicines?: No Do you have trouble getting transportation to medical appointments?: No Do you have trouble paying your heating and electricity bill?: No Do you have trouble taking care of your child, family member or friend?: No Do you have trouble with day-to-day activities such as bathing, preparing meals, shopping, managing finances, etc.?: No Are you currently unemployed and looking for a job?: No Are you interested in more education?: No Please select the resources that you would like help with: None Currently or been in a relationship where the following occur: No concerns reported THRIVE Score: 0 AUDIT C Alcohol Use Questionnaire (AUDIT-C) 1. How often do you have a drink containing alcohol?: 2-4 times a month 2. How many drinks containing alcohol do you have on a typical day when you are drinking?: 1 or 2 3. How often do you have six or more drinks on one occasion?: Less than monthly Total Score: 3 Score Reviewed/Action Taken: Yes SILVIANO-7 AMB Questionnaire SILVIANO-7 Date SILVIANO - 7 assessed: 04/29/25 Feeling nervous, anxious, or on edge: 1 = Several days Not being able to stop or control worryin = Several days Worrying too much about different things: 1 = Several days Trouble relaxin = Several days Being so restless that it is hard to sit still: 1 = Several days Becoming easily annoyed or irritable: 0 = Not at all Feeling afraid as if something awful might happen: 0 = Not at all Total SILVIANO-7 score (0-4 normal; 5-9 mild; 10-14 moderate; 15-21 severe): 5 Source: Developed by Drs. Bear Armenta, Pema Power, Napoleon Mckee and colleagues, with an educational calderon from [employer]. Review of Systems Const Denies chills, Denies fatigue, Denies fever(s) and Denies headache(s) ENT Denies dysphagia, Denies dizziness, Denies otalgia, Denies headache(s), Denies neck pain, Denies odynophagia and Denies sore throat Card Denies chest pain, Denies rapid heart rate, Denies palpitations and Denies dyspnea Resp Denies chest congestion, Denies cough and Denies dyspnea GI Denies abdominal pain, Denies constipation, Denies dysphagia, Denies heartburn, Denies diarrhea, Denies nausea, Denies odynophagia and Denies vomiting Denies urinary frequency, Denies dysuria and Denies urinary urgency Musc Denies back pain, Reports arthralgias (in the right shoulder - see HPI) and Denies neck pain Skin/Breast Denies rash Neuro Denies dizziness, Denies headache(s) and Denies paresthesias Psych Denies anxiety and Denies depression Endo Denies fatigue and Denies palpitations Joel/Lymph Denies easy bruising Physical exam (Primary Care) Vital Signs: Last Vital Signs Pulse 72 04/29/25 14:34 BP 138/90 H 04/29/25 14:34 Pulse Ox 98 04/29/25 14:34 Oxygen Delivery Method Room Air 04/29/25 14:34 BMI result Body Mass Index 30.7 Tobacco/Smoking Status: Tobacco use Status Tobacco use date assessed 04/29/25 04/29/25 14:40 Patient Tobacco Use Status Never used Tobacco 04/29/25 14:40 e-Cigarette/Vaping Use Never Used 04/29/25 14:40 PHQ-9: PHQ-9 Score PHQ-9: Total score 1 04/29/25 14:40 Depression Screening Interpretation: Negative Thrive Assessment: Date of Thrive Assessment Date Thrive assessed 04/29/25 04/29/25 14:40 Currently or been in a relationship where the following occur: No concerns reported Const General: no acute distress and alert HENMT Throat: Yes posterior oropharynx normal and Yes tonsils normal (no TP congestion) Neck Neck: Yes supple and No lymphadenopathy Thyroid: Thyroid normal Resp Auscultation: clear to auscultation bilaterally, no rales and no wheezes Cardio Rate: regular rate Rhythm: regular rhythm Heart sounds: no murmurs GI Palpation (GI): Soft to palpation and nontender Auscultation: normal bowel sounds General: Yes no CVA tenderness Back/Spine/Pelvis Back: no CVA tenderness Thoracic/Lumbar Spine: thoracic and lumbar spine normal to inspection Skin Rashes: no rashes Extrem General: Yes no clubbing, cyanosis or edema Right upper extremity: shoulder/upper arm Details: tenderness Location: of the A-C joint and abnormal ROM (limited somewhat due to pain); no swelling Coding Level of Care Code Est Pt Level 3 (71238) Diagnoses Multiple environmental allergies Z91.09 Incomplete tear of right rotator cuff, unspecified whether traumatic M75.111 Rotator cuff tear trauma status: unspecified whether traumatic Laterality: right Depression, unspecified depression type F32.A Depression Type: unspecified Obesity (BMI 30-39.9) E66.9 Additional Codes PHQ-9 - 00589 - PHQ-9 Billing: Yes ([id number]) Assessment & Plan Assessment & Plan (1) Multiple environmental allergies: Code(s): Z91.09 - Other allergy status, other than to drugs and biological substances Category: Medical Plan: Continue Levocetirizine 5 mg QD PRN (2) Partial thickness rotator cuff tear: Code(s): M75.110 - Incomplete rotator cuff tear or rupture of unspecified shoulder, not specified as traumatic Category: Medical Qualifiers: Rotator cuff tear trauma status: unspecified whether traumatic Laterality: right Qualified Code(s): M75.111 - Incomplete rotator cuff tear or rupture of right shoulder, not specified as traumatic Plan: Patient initially sustained her right shoulder injury back in May 2024 She has failed physical therapy and MRI done back on 10/07/2024 revealed (+) rotator cuff tear in the shoulder involving both supraspinatus and infraspinatus tendons She eventually underwent right rotator cuff repair/surgery with on 01/28/2025 and is currently still recovering from her surgery and going to physical therapy States that she is still experiencing frequent discomfort and some pain in her shoulder Continue Naproxen ER BID PRN Follow up with orthopedics as scheduled (3) Depression: Code(s): F32.A - Depression, unspecified Category: Medical Qualifiers: Depression Type: unspecified Qualified Code(s): F32.A - Depression, unspecified Plan: Patient states that she continues to follow-up with her therapist/counselor regularly every week and she is doing well so far with this She continues to decline pharmacotherapy for depression at this time (4) Obesity (BMI 30-39.9): Code(s): E66.9 - Obesity, unspecified Category: Medical Plan: Reinforced diet/exercise as tolerated/lose weight Plan To return as scheduled on 12/23/2025 for her next annual physical examination She is reminded to get her labs done (ordered) just before she comes in for her annual physical next year Orders: Orders Complete Blood Count Auto Diff 12/12/25 D64.9 - Anemia, unspecified, Z00.00 - Encounter for general adult medical examination without abnormal findings Comprehensive Hilbert. Panel Fast 12/12/25 E78.00 - Pure hypercholesterolemia, unspecified, Z00.00 - Encounter for general adult medical examination without abnormal findings Lipid Panel 12/12/25 E78.00 - Pure hypercholesterolemia, unspecified, Z00.00 - Encounter for general adult medical examination without abnormal findings Vitamin D 25-OH Total 12/12/25 E55.9 - Vitamin D deficiency, unspecified, Z00.00 - Encounter for general adult medical examination without abnormal findings TSH reflex Free T4 12/12/25 E78.00 - Pure hypercholesterolemia, unspecified, Z00.00 - Encounter for general adult medical examination without abnormal findings UA CC w/rflx Micro + Cult 12/12/25 R30.0 - Dysuria, Z00.00 - Encounter for general adult medical examination without abnormal findings
[2025-04-29 14:34] VITALS: BP 138/90; PULSE 72; O2SAT 98; BMI 30.7
== END 2025-04-29 15:07 | disposition home or self-care (01) ==
LOC: HO.HMCH 14:29
PROVIDERS: PCP Internal Medicine; Visit Provider Internal Medicine
DX: M75.111 Incomplete rotator cuff tear or rupture of right shoulder, not specified as traumatic (principal); Z91.09 Other allergy status, other than to drugs and biological substances; E66.9 Obesity, unspecified; Z68.30 Body mass index [BMI] 30.0-30.9, adult; F32.A Depression, unspecified

== ENCOUNTER → 2025-04-29 14:28 | Outpatient (BNVA) | payer OTHER, SELFPAY | PROVIDERS: PCP Internal Medicine; Visit Provider Internal Medicine | DX: M75.111 Incomplete rotator cuff tear or rupture of right shoulder, not specified as traumatic (principal); F32.A Depression, unspecified; E66.9 Obesity, unspecified; Z91.09 Other allergy status, other than to drugs and biological substances; Z68.30 Body mass index [BMI] 30.0-30.9, adult | CPT/HCPCS: 96127; 99212 ==

== ENCOUNTER 2025-06-02 10:55 | Outpatient (RCR) | payer OTHER, SELFPAY ==
--- NOTE | 2025-02-06 14:36 | MHC.PT.EP ---
[facility] [place] Office [place] Office [place] Office [address] Karoline Lomax [address] [phone] F: [phone] F: [phone] F: [phone] F: [phone] Physical Therapy Plan of Care Date of Evaluation: 02/06/25 Date of Surgery: 01/28/25 Diagnosis: PT eval and treat, Z98.890 Other specified post procedural states, status post rotator cuff repair signed by Geo 02/04/25 Assessment: Pt is a RHD 44 y/o female, referred to PT for treatment of PT eval and treat, Z98.890 Other specified post procedural states, status post rotator cuff repair signed by Geo 02/04/25. Pt is s/p R RTC repair Dr. Kassy LANDIS 01/28/25 (full thickness supraspinatus and anterior 1/3 infraspinatus) following history of fall which occurred 06/14. Pt had MRI 10/14 (+) tear. Pt presents in abduction sling with wedge expressing good compliance, rating severe pain as 10/10 (did not take pain medication prior to session, reports use of oxycodone every 4-6 hours, tylenol prn, expressing fear she is not wearing sling correctly with report of difficulty sleeping. Pt will be seen in PT 1x/week for the first 6 weeks, then 2x/week thereafter. Pt utilizing [employer] transportation services as she is unable to drive. 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 She is currently using a shower bench, notes difficulty sleeping. She admits and verbalizes active depression since surgery but is stable and she is working with therapist currently. She was educated re: goals of therapy, findings of evaluation, sling use at all times with exception of hygiene/therapy, precaution to not touch steri-strips and allow to fall off on their own. Frequency and Duration: The patient will be seen 1x/week x 6 weeks, 2x/week x 6 weeks after that Short Term Goals: 1. PROM R shoulder flexion to 100 degrees as advanced per protocol. 2. Pt will demonstrate I HEP/self-care program. 3. Initiate PROM R shoulder abduction to 100 degrees as advanced per protocol. 4. PROM R shoulder ER to 20 degrees as advanced per protocol. 5. DC sling use at 6 weeks post op per protocol/ clearance. Intermediate Goals: 1. AAROM>AROM R shoulder flexion to 140 as cleared per protocol. 2. AAROM>AROM R shoulder abduction to 130 as cleared per protocol. 3. Resume driving as cleared per protocol with good joint protection measures. 4. Pt will demonstrate reduction in pain level 10/10 to <2/10; SPADI score improvement by 85%. 5. Pt will demonstrate strength 5/5 R shoulder abduction as cleared per protocol. Treatment Plan: Modalities to reduce pain, spasms and effusion. Manual therapy to restore motion and function. Therapeutic exercise to improve strength and flexibility. Neuromuscular re-education for posture and balance. Therapeutic activities to return to functional activities of daily living. Electronically signed by: Miriam Haider, PT, DPT Please sign and return to therapist. Thank you for your referral.
--- NOTE | 2025-04-14 12:12 | MHC.PT.OD ---
[facility] [place] Office [place] Office [place] Office [address] Karoline Lomax [address] [phone] F: [phone] F: [phone] F: [phone] F: [phone] Physical Therapy Daily Note Diagnosis: PT eval and treat, Z98.890 Other specified post procedural states, status post rotator cuff repair signed by Geo 02/04/25 Date of Surgery: 01/28/25 Date of Evaluation: 02/06/25 Date of Treatment: 04/14/25 Treatments to Date: Cancellations to Date: No Shows to Date: Authorized Visits: 11 Insurance End Date: Precautions/ Contraindications:DOS 01/28/25 Subjective: I went in the pool for the first time yesterday. Im just worried that the pain is not going to go away. I see Dr. Elena on . Pain Score and Location: 4 R shoulder Objective Flowsheet: Tests & Measures [facility] [address] [place] [address] [address] [place] [id number] Office Visit Report Signed Patient: Tequila TaMR#: [id number] : 1980Acct:[id number] Age/Sex: 44 / FADM/SER Date: 03/05/25 Loc: HO.HOSADM/SER Time:1335 Attending Provider: Maldonado Elena MD cc: Michoacano Lynch MD~ Intake Visit Reasons: PO - RT RTC repair 01/28/25 NE Intake Note: Mike is a 44 year old right hand dominant female who presents today for a post operative appointment s/p Right RTC Repair 01/28/25. Patient reports that she has hat a lot of pain in the right side of her neck as well as headache. She is taking prescribed medication which is helping. She reports that the numbness and tinglnig in her fingers is resolving. She occasionally gets a non painful spasm of the right arm. She has been wearing the sling at all times./ Allergies No Known Drug Allergies Allergy (Unknown, Verified 03/05/25 13:42) Unknown HPI HPI PO - RT RTC repair 01/28/25 NE: Details: s/p right RTC repair. Doing well. Using her arm at home. Started PT but just. [facility] Medical History Anxiety Depression Vitamin D deficiency Obesity (BMI 30-39.9) Multiple environmental allergies Surgical History Status post left oophorectomy (~12/2017) Family History Father Colon cancer Mother No problems noted. Social History Housing: House Alcohol intake: current Alcohol intake frequency: holidays/special occasions only Patient Tobacco Use Status: Never used Tobacco e-Cigarette/Vaping Use: Never Used Second Hand Smoke Exposure: Yes service: No Current occupational status: employed Current occupation: [employer], right hand dominant Cognitive needs: No Hearing needs: No Vision needs: No Physical Exam Extrem Other: portals c/d/i NVI Assessment & Plan Assessment & Plan (1) Status post rotator cuff repair: Code(s): Z98.890 - Other specified postprocedural states Category: Surgical Plan: s/p left RTC repair. PT per protocol. f/u 6 weeks, d/c Slign and discussed resrictions Coding Level of Care Code Global (21565) Diagnoses Status post rotator cuff repair Z98.890 Documented By:Maldonado Elena MD03/05/25 1339 Signed By:<Electronically signed by Maldonado Elena MD>03/05/25 1521 Exercises AAROM Pendulums for gentle, standing AAROM cane flexion and scaption x 5 sec hold x 10R, AAROM flexion in supine with wand, AAROM cane scaption x 10 sec hold x 2 sets 5R, isometric scapular retraction x 2 sets 10R, prone row to neutral with no added resistance x 2 sets 10R, prone shoulder ext to neutral x 2 sets 5R with modified range no weight (prone over pillow). AROM elevation with recliner on mat with AAROM lowering for support of opposite hand. PROM for R shoulder all planes to gentle tolerance, no pain grossly flexion 130 degrees, ER 45 at 45, AAROM scaption 120 on R. Modalities Assessment: 04/14/25: Tequila is 10 weeks, six days post op, overall doing well in regard to recovery of her R RTC repair. She notes some elevated pain upon waking in AM and in SL positions at night sometimes intensity rated 8/10. We have discussed positions and movements to avoid. We have discussed joint protection and AAROM vs AROM, no lifting of the shoulder but admits this is hard to follow at times. Please advise in clearance to progress to strengthening. Pt will see Dr. Elena on 04/16/25. 04/17/25: Pt advancing AAROM program of R shoulder. Pt to see Dr. Elena on 04/16/25. 04/03/25: Pt initiated in AAROM tomas in sitting today for flexion and scaption. 03/31/25: Pt advancing in AAROM program. 03/27/25: Pt advancing in AAROM program of R shoulder. Pt doing well overall. Pt reporting less pain. 03/20/25: Pt is 7 weeks, three days post ops. Pt has next appt 04/16/25 at 1:45 pm at orthopedic office. Pt is not driving, taking tylenol prior to PT. Pt waking at night every ~4-5 hours even with tylenol. Pt has mechanical bed sleeping with less elevation. Pt issued AAROM scaption and AAROM ER with cane for home program. Encouraged more frequent icing of shoulder to reduce sx. Educated re: precautions of RTC repair. Pt reports compliance with no lifting. 03/10/25: Pt had post op appt 03/05/25 sling was D/C. Pt was initiated in AAROM flexion sitting/supine, AAROM scaption sitting table slides this date. Pt did not take tylenol prior to session this date. Pt encouraged to keep icing post stretches. Reinforced precautions and goals at this time. 03/03/25; Pt is five weeks 6 days post op. Pt was educated re: AAROM flexion in supine with aide of opposite hand. Pt to see [facility] . Reiterated goals/safety with sling use and plans for next steps. 02/24/25: Pt is 4 weeks, 6 days post op. Pt noted she continues to use oxycodone twice daily has been icing her shoulder but only 2xdaily. Pt has been compliant with sling use. 02/16/25: Pt exhibits improving tolerance for PROM, reports good compliance with sling use. Pt reports some intermittent parathesias in R hand but resolves with change in positioning. Pt did not take any medication prior to session, notes continues to take pain medication but did not take this am due to wanting to eat with it and did not have time. Pt utilizing [employer] transportation service. 02/11/25: Pt with better tolerance for PROM of R shoulder flexion. Pt reports she takes pain medication every 6 hours, has been taking zofran for aide in nausea. Pt encouraged to ice shoulder prn to ease sx. Reinforced precaution in regard to use of sling/abd wedge at all times with exception of hygiene/therapy. Pt to continue 1x/weekly until 6 week post op appt. Pt is a RHD 44 y/o female, referred to PT for treatment of PT eval and treat, Z98.890 Other specified post procedural states, status post rotator cuff repair signed by Geo 02/04/25. Pt is s/p R RTC repair Dr. Elena DOS 01/28/25 (full thickness supraspinatus and anterior 1/3 infraspinatus) following history of fall which occurred 06/14. Pt had MRI 10/14 (+) tear. Pt presents in abduction sling with wedge expressing good compliance, rating severe pain as 10/10 (did not take pain medication prior to session, reports use of oxycodone every 4-6 hours, tylenol prn, expressing fear she is not wearing sling correctly with report of difficulty sleeping. Pt will be seen in PT 1x/week for the first 6 weeks, then 2x/week thereafter. Pt utilizing [employer] transportation services as she is unable to drive. 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 She is currently using a shower bench, notes difficulty sleeping. She admits and verbalizes active depression since surgery but is stable and she is working with therapist currently. She was educated re: goals of therapy, findings of evaluation, sling use at all times with exception of hygiene/therapy, precaution to not touch steri-strips and allow to fall off on their own. PT Plan: 1x/week x 6 weeks, 2x/week x 6 weeks thereafter Short Term Goals: 1. PROM R shoulder flexion to 100 degrees as advanced per protocol. 2. Pt will demonstrate I HEP/self-care program. 3. Initiate PROM R shoulder abduction to 100 degrees as advanced per protocol. 4. PROM R shoulder ER to 20 degrees as advanced per protocol. 5. DC sling use at 6 weeks post op per protocol/ clearance. 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 AAROM>AROM R shoulder flexion to 140 as cleared per protocol. 2. AAROM>AROM R shoulder abduction to 130 as cleared per protocol. 3. Resume driving as cleared per protocol with good joint protection measures. 4. Pt will demonstrate reduction in pain level 10/10 to <2/10; SPADI score improvement by 85%. 5. Pt will demonstrate strength 5/5 R shoulder abduction as cleared per protocol. Electronically signed by: Miriam Haider, PT, DPT
== END 2025-07-16 15:09 | disposition home or self-care (01) ==
LOC: HO.PTS 10:55
PROVIDERS: Visit Provider Physician Assistant
DX: S46.011D Strain of muscle(s) and tendon(s) of the rotator cuff of right shoulder, subsequent encounter (principal); Z98.890 Other specified postprocedural states
CPT/HCPCS: 97110; 97140; 97161; 97530; 97535

== ENCOUNTER 2025-07-30 13:11 | Outpatient (AMB) | payer OTHER, SELFPAY ==
--- NOTE | 2025-07-30 13:13 | MHC.OFFVIS ---
Vital Signs 07/30/25 13:14 Height 5 ft 3 in Weight 173 lb BMI 30.6 Intake Visit Reasons: OV-RT RTC repair 01/28/25 NE-3 month F/U Intake Note: Tequila is a 44 year old right hand dominant female who presents today for a follow up about 6 months s/p Right RTC Repair 01/28/25. This injury was due to a fall on 06/08/2024. At her last visit she was given an RX for Naproxen. Patient reports that she is improving, she is still struggling to sleep due to her pain. She is taking the Naproxen but does not notice any significant changes over taking tylenol or ibuprofen. She has been working with [facility] [place] - she missed her last visit and has not had the time to reschedule. Allergies No Known Drug Allergies Allergy (Unknown, Verified 07/30/25 13:19) Unknown HPI HPI OV-RT RTC repair 01/28/25 NE-3 month F/U: Details: Tequila is a 44 year old right hand dominant female who presents today for a follow up about 6 months s/p Right RTC Repair 01/28/25. This injury was due to a fall on 06/08/2024. At her last visit she was given an RX for Naproxen. Patient reports that she is improving, she is still struggling to sleep due to her pain. She is taking the Naproxen but does not notice any significant changes over tylenol or ibuprofen. She has been working with [facility] [place] - she missed her last visit and has not had the time to reschedule. [facility] Medical History Anxiety Depression Vitamin D deficiency Obesity (BMI 30-39.9) Multiple environmental allergies Surgical History Status post left oophorectomy (~12/2017) Family History Father Colon cancer Mother No problems noted. Social History Housing: House Alcohol intake: current Alcohol intake frequency: holidays/special occasions only Patient Tobacco Use Status: Never used Tobacco e-Cigarette/Vaping Use: Never Used Second Hand Smoke Exposure: Yes service: No Current occupational status: employed Current occupation: [employer], right hand dominant Cognitive needs: No Hearing needs: No Vision needs: No Physical Exam Vital Signs: BMI result Body Mass Index 30.6 Extrem Other: 45/90/130/L5 Negative empty can No pain with passive forward flexion past 90. No pain with passive abduction Assessment & Plan Assessment & Plan (1) Status post rotator cuff repair: Code(s): Z98.890 - Other specified postprocedural states Category: Surgical Plan: Still has some pain at night but improving. Continue home strengthening program, range of motion activity as tolerated. Follow up 3 months. No heavy lifting. Coding Level of Care Code Est Pt Level 3 (79843) Diagnoses Status post rotator cuff repair Z98.890
[2025-07-30 13:14] VITALS: BMI 30.6
== END 2025-07-30 13:43 | disposition home or self-care (01) ==
LOC: HO.HOS 13:12
PROVIDERS: PCP Internal Medicine; Visit Provider Orthopaedic Surgery
DX: Z47.89 Encounter for other orthopedic aftercare (principal); Z98.890 Other specified postprocedural states
CPT/HCPCS: 99213

== ENCOUNTER → 2025-07-30 13:11 | Outpatient (BNVA) | payer OTHER, SELFPAY | PROVIDERS: PCP Internal Medicine; Visit Provider Orthopaedic Surgery | DX: M25.511 Pain in right shoulder (principal); Z98.890 Other specified postprocedural states | CPT/HCPCS: 99212 ==